=== PATIENT | female | born 1945 | race Caucasian/White ===

== ENCOUNTER 2016-08-28 13:40 | Emergency (ER) | payer MEDICARE, OTHER ==
[2016-08-28] MEDS ORDERED: Ondansetron 4 MG/2 ML SDV IVPUSH ONE (14:06)
[2016-08-28] MEDS ORDERED: HYDROmorphone 2 MG/ML Syringe IVPUSH ONE (14:06)
[2016-08-28] MEDS ORDERED: Sodium Chloride 0.9% 10 ML Syringe FLUSH PRN (14:06)
[2016-08-28] MEDS ORDERED: Sodium Chloride 0.9% 2.5 ML Syringe FLUSH PRN (14:06)
[2016-08-28] MEDS ORDERED: Dexamethasone 4 MG/ML SDV IVPUSH ONE (14:13)
--- NOTE | 2016-08-28 14:13 | EDM.PDOC ---
ED HPI GENERAL MEDICAL PROBLEM - General Chief Complaint: Back Pain or Injury Stated Complaint: UNK Time Seen by Provider: 08/28/16 13:45 Source of Information: Reports: Patient History Limitations: Reports: No limitations - History of Present Illness INITIAL COMMENTS - FREE TEXT/NARRATIVE: Presents to the ER after an MRI of the lumbar spine. The patient states that 2 weeks ago she had lumbar spine surgery at [facility] in [place] under the services of Dr. Patricio. She was discharged without any perioperative complications and did well the first 3 days. Then she began having "terrible" pain in her low back radiating to her buttocks hips and down her legs. She was seen in the [facility] clinic twice where they adjusted her pain medication. However within the last couple of days she has not been unable to walk and do to excruciating pain. This morning she was able to bear weight but only with severe pain. She denies bowel or bladder incontinence saddle anesthesia or fever. I did speak with the radiologist who indicated that the MRI showed a 1.3-1.9 cm fluid collection around L34 disc space posteriorly. This has mass effect on the thecal sac resulting in severe spinal canal stenosis. Tract up to the subcutaneous tissue. Most likely represents a hematoma. - Related Data Allergies Allergy/AdvReac Type Severity Reaction Status Date / Time hydrocodone Allergy Itching Verified 08/28/16 14:09 Home Meds: Home Meds . [Unable to Verify Home Med List] 08/28/16 [History] ED ROS GENERAL - Review of Systems Review Of Systems: ROS reveals no pertinent complaints other than HPI. ED EXAM,LOWER BACK PAIN/INJURY - Physical Exam Exam: See Below Exam Limited By: No limitations General Appearance: alert, no apparent distress (She states when she lays absolutely still she has no pain) Ears: normal external exam Nose: normal inspection Throat/Mouth: Normal inspection Head: atraumatic, normocephalic Neck: normal inspection Respiratory/Chest: no respiratory distress, lungs clear, normal breath sounds Cardiovascular: normal peripheral pulses, regular rate, rhythm, no murmur GI/Abdominal: Soft (Has been having regular bowel movements) Back Exam: normal inspection, other (Incision clean dry intact and granulating) Extremities: normal inspection Neurological: alert, CN II-XII intact, difficulty walking (Due to pain). No: saddle anesthesia Psychiatric: normal affect, normal mood Skin Exam: Warm, Dry, Intact, Normal color, No rash Lymphatic: no adenopathy Course - Vital Signs Last Recorded V/S: Last Vital Signs Temp 36.8 C 08/28/16 13:52 Pulse 72 08/28/16 13:52 Resp 16 08/28/16 13:52 BP 119/52 L 08/28/16 13:52 Pulse Ox 95 08/28/16 13:52 - Orders/Labs/Meds Orders: Active Orders 24 hr Category Date Time Status HYDROmorphone [Dilaudid] Med 08/28/16 14:06 Once 1 mg IVPUSH ONETIME ONE Ondansetron [Zofran] Med 08/28/16 14:06 Once 4 mg IVPUSH ONETIME ONE Sodium Chloride 0.9% [Saline Flush] Med 08/28/16 14:06 Ordered 10 ml FLUSH ASDIRECTED PRN Sodium Chloride 0.9% [Saline Flush] Med 08/28/16 14:06 Ordered 2.5 ml FLUSH ASDIRECTED PRN Saline Lock Insert [OM.PC] Stat Oth 08/28/16 14:06 Ordered - Re-Assessments/Exams Free Text/Narrative Re-Assessment/Exam: 08/28/16 15:[address] Chi, neurosurgery at [facility]. She talked with the patient's surgeon Dr. Patricio had viewed the MRI and scheduled the patient for surgery tomorrow morning. Dr. Chi and agrees to accept the patient in transfer and has notified the emergency room physician at [facility], Dr. Patel, who will be anticipating the patient's arrival. Free Text/Narrative Re-Assessment/Exam: 08/28/16 16:02 I did visit with Sena, the patient's daughter and informed her as well as the patient of the findings, transfer and plan of care Departure - Departure Time of Disposition: 15:57 Disposition: DC/Tfer to Acute Hospital 02 Condition: fair Clinical Impression: Spinal cord compression Postoperative complication Qualifiers: Surgical complication system/body Area: nervous system Surgical complication type: hematoma Procedure type: nervous system Qualified Code(s): G97.61 - Postprocedural hematoma of a nervous system organ or structure following a nervous system procedure - Discharge Information Forms: ED Department Discharge - My Orders Last 24 Hours: My Active Orders 08/28/16 14:06 HYDROmorphone [Dilaudid] 1 mg IVPUSH ONETIME ONE Ondansetron [Zofran] 4 mg IVPUSH ONETIME ONE Sodium Chloride 0.9% [Saline Flush] 10 ml FLUSH ASDIRECTED PRN Sodium Chloride 0.9% [Saline Flush] 2.5 ml FLUSH ASDIRECTED PRN Saline Lock Insert [OM.PC] Stat - Assessment/Plan Last 24 Hours: My Active Orders 08/28/16 14:06 HYDROmorphone [Dilaudid] 1 mg IVPUSH ONETIME ONE Ondansetron [Zofran] 4 mg IVPUSH ONETIME ONE Sodium Chloride 0.9% [Saline Flush] 10 ml FLUSH ASDIRECTED PRN Sodium Chloride 0.9% [Saline Flush] 2.5 ml FLUSH ASDIRECTED PRN Saline Lock Insert [OM.PC] Stat
[2016-08-28] MEDS ORDERED: HYDROmorphone 1 MG/ML Syringe IVPUSH ONE (14:34)
[2016-08-28] MEDS ORDERED: Dexamethasone 4 MG/ML SDV IVPUSH STA (14:38)
[2016-08-28] MEDS ORDERED: Dexamethasone 10 MG/ML SDV ONE (14:42)
[2016-08-28] MEDS ORDERED: LORazepam 2 MG/ML MDV IVPUSH ONE (16:24)
[2016-08-28 17:46] VITALS: BP 116/50
== END 2016-08-28 16:40 ==
LOC: MW.ED 13:40
DX: G95.20 Unspecified cord compression (principal); G97.61 Postprocedural hematoma of a nervous system organ or structure following a nervous system procedure; Z88.5 Allergy status to narcotic agent; M54.30 Sciatica, unspecified side; M51.35 Other intervertebral disc degeneration, thoracolumbar region
CPT/HCPCS: 72148; 81001; 96374; 96375; 99284; J1100; J1170; J2060; J2405

== ENCOUNTER → 2016-08-28 | Outpatient (CLI) | payer MEDICARE, OTHER ==
--- NOTE | 2016-08-28 13:43 | MR ---
EXAMINATION: MRI lumbar spine HISTORY: Sciatica, recent laminectomy COMPARISON: None TECHNIQUE: Multiplanar and multisequence images obtained of the lumbar spine. FINDINGS: There is straightening of the normal lumbar lordosis. The vertebral body heights appear gr ossly maintained. Endplate signal changes are noted at L4-L5. The distal spinal cord appears normal and the conus terminates at L1-L2. The visualized retroperitoneal structures appear normal. The S I joints are symmetric. T12-L1: Tiny diffuse disc bulge without significant spinal canal or neural foraminal stenosis. L1-L2: Tiny diffuse disc bulge with mild spinal canal stenosis accentuated by ligamentum flavum hype rtrophy. Minimal bilateral neural foraminal stenosis. L2-L3: Small diffuse disc bulge with facet and ligamentum flavum hypertrophy. There is moderate over all spinal canal stenosis. L3-L4: There is a moderate diffuse disc bulge with facet hypertrophy. There is severe spinal canal s tenosis predominantly from a complex posterior fluid collection measuring 1.9 x 1.3 cm extending int o the epidural space superiorly. This is in the site of the recent laminectomy. Appears to be a sinu s tract extending posteriorly to the cutaneous surface. L4-L5: Tiny diffuse osteophyte disc complex without spinal canal stenosis. Mild facet hypertrophy. M oderate bilateral neural foraminal stenosis. Overlying laminectomy changes. L5-S1: Moderate diffuse disc bulge without significant spinal canal stenosis. Moderate left and mild right neural foraminal stenosis. IMPRESSION: 1. There is a complex 1.3 x 1.9 cm fluid collection overlying the L3-L4 disc space posteriorly. This has mass effect on the thecal sac resulting in severe spinal canal stenosis at the level. This appe ars continuous with a sinus tract extending posteriorly to the subcutaneous tissues. This likely rep resents a postoperative hematoma, however an abscess is not excluded. 2. Otherwise multilevel degenerative disc disease noted within the lumbar spine with individual deta ils above.
== END ==
LOC: MW.MRI 12:38
PROVIDERS: ATTEND Nurse Practitioner Family
DX: M54.30 Sciatica, unspecified side (principal); M51.35 Other intervertebral disc degeneration, thoracolumbar region
CPT/HCPCS: 72148; 72148-26

== ENCOUNTER 2017-04-09 11:30 | Inpatient (IN) | payer MEDICARE, OTHER ==
[~2017-04-09 11:30] MED LIST: Acetaminophen 1,000 MG in Premix Bag 1 BAG IV SCH; Famotidine 20 MG/2 ML SDV IVPUSH SCH; HYDROmorphone 2 MG/ML Syringe ONE; Ketorolac 15 MG/ML SDV IVPUSH SCH; Lactated Ringers 1,000 ML IV SCH; Lidocaine 2% 5 ML SDV ONE; Midazolam 1 MG/ML 2 ML SDV ONE; Ondansetron 4 MG/2 ML SDV IVPUSH PRN; Ondansetron 4 MG/2 ML SDV ONE; Propofol 200 MG/20 ML SDV ONE; Ropivacaine 49.25 ML, Ketorolac 30 MG, EPINEPHrine 0.5 MG, cloNIDine 80 MCG in Sodium C... INJECT SCH; Scopolamine 1.5 MG Transdermal Patch TRDERM SCH; Succinylcholine/Normal Saline 200 MG/10 ML Syringe ONE; Tranexamic Acid 4,000 MG in Sodium Chloride 0.9% 100 ML IV SCH; ceFAZolin 2 GM in Premix Bag 1 BAG IV SCH; ePHEDrine 50 MG/ML SDV ONE; fentaNYL 100 MCG/2 ML SDV ONE; oxyCODONE ER 10 MG TAB.ER PO SCH
[2017-04-09] MEDS ORDERED: fentaNYL 100 MCG/2 ML SDV ONE ×2 (12:03→12:12)
[2017-04-09] MEDS ORDERED: diphenhydrAMINE 50 MG/ML SDV ONE (12:14)
[2017-04-09] MEDS ORDERED: Acetaminophen 1,000 MG in Premix Bag 1 BAG IV PRN (13:15)
[2017-04-09] MEDS ORDERED: HYDROmorphone 1 MG/ML Syringe ONE ×2 (13:17→17:36)
[2017-04-09] MEDS ORDERED: diphenhydrAMINE 50 MG Cap ONE (14:06)
[2017-04-09] MEDS ORDERED: Ketorolac 30 MG/ML SDV ONE (14:06)
[2017-04-09] MEDS ORDERED: oxyCODONE 5 MG Tab ONE (15:21)
--- NOTE | 2017-04-09 18:19 | OR ---
SURGEON: Latasha Walker MD DATE OF PROCEDURE: 04/09/2017 PREOPERATIVE DIAGNOSIS: Degenerative joint disease, left knee. POSTOPERATIVE DIAGNOSIS: Degenerative joint disease, left knee. PROCEDURE: Left total knee arthroplasty using patient-specific instrumentation. ASSISTANTS: 1. Florida Gutierres PA-C. 2. Felix Isaac PA-C. ANESTHESIA: General. ESTIMATED BLOOD LOSS: 50 mL. TOURNIQUET TIME: 35 minutes. COMPLICATIONS: None. DVT PROPHYLAXIS: PAS boot and NAOMY hose to the nonoperative leg. IMPLANTS USED: Mamie NexGen femoral component size E, gender specific (LPS), tibial component size 5, 10 mm all-polyethylene articular surface, and 32 mm all-polyethylene patella. FINDINGS: Intraoperative findings showed evidence of tricompartmental degenerative joint disease with grade 4 chondromalacia. Osteophyte formation was also noted. No significant synovitis was found. BRIEF HISTORY: Luzmaria is a 71-year-old female, who has had complaint of progressive left knee pain. She had failed conservative treatment. Due to her lack of response to conservative treatment, I did recommend surgical intervention. The risks and goals of procedure were discussed with the patient and were documented preoperatively. She agreed to proceed. DESCRIPTION OF PROCEDURE: The patient was properly identified and brought to the operating room. The patient was transferred from the operating room cart and placed on the operating room table. Spinal anesthesia was administered by the anesthesia team. After adequate sedation was achieved, a well-padded tourniquet was applied to the lower extremity. A Hooker catheter was then placed. The lower extremity was then prepped in standard fashion using ChloraPrep solution. It was then sterilely draped. A time-out was performed to ensure correct site and procedure. Preoperative antibiotics were given along with one gram of tranexamic acid IV. The surgical site had been marked preoperatively. An Esmarch was used to exsanguinate the lower extremity and the tourniquet was inflated. An incision was made centered over the anterior aspect of the knee. The subcutaneous tissues were dissected down to the level of the fascia. A medial parapatellar approach was made. A partial medial release was also performed. The knee was then brought into extension and a portion of the infrapatellar fat pad was excised. The knee was then brought into flexion. The femoral patient specific cutting block was placed. This fit anatomically. The pins were then placed. The 0 degree distal femoral cutting guide was placed over the distal femur pins. The femur was then resected using an oscillating saw. The pins were then removed and were placed into the previously placed distal drill holes in the femoral condyles. Both Mccone's and the epicondylar axis were marked with electric cautery. The cutting block was then placed. This was pinned into position in a slightly lateral and externally rotated position. This was then secured. The resection guide was used to check to make sure that the anterior femoral cortex would not be notched. The anterior condylar cut was then made. No notching of the femur was noted. This was followed by the posterior condylar, posterior chamfer, and anterior chamfer cuts. The narrow reciprocating saw was then used to cut the base of the trochlear recess and score the edges. The finishing guide was then removed and the trochlear recess cuts and remaining bone cuts were finished. The notch cutting block was then placed into position and the notch cut was made without difficulty using the reciprocating saw. This was then removed. The notch block that had been cut along with a portion of the cruciate ligaments were also resected. We then turned our attention to the tibia. The posterior cruciate ligament retractor was used to bring the tibial surface anteriorly. The patient specific tibial block was then placed. This fit anatomically. It was pinned into position. The block was then removed. The 0 degree proximal tibia cutting guide was then placed over the guide pin. This was secured with a Abdias clamp. The resection depth was checked using the resection guide. A proximal tibia cut was then made using an oscillating saw. Care was taken to protect the patellar tendon. The proximal tibia bone was then removed. The remainder of the medial and lateral meniscus were also excised. Care was taken to protect the popliteus tendon. The proximal tibia was then sized. The remainder of the osteophytes along the proximal tibia were also resected. The distal femur was elevated to expose the posterior knee. The posterior capsule was stripped off the distal femur using a curved osteotome. The posterior osteophytes were also excised. The posterior capsule, along with the medial and lateral gutters, were then injected with the standard, preoperatively prepared, mixture consisting of clonidine, epinephrine, ropivacaine, Toradol, and saline, unless any allergies were noted preoperatively. The femoral trial was then placed. This was followed by the tibial component with a size 10 trial polyethylene. The knee was brought into full extension. Stability to varus and valgus stress was checked in extension and in flexion. There appeared to be good range of motion and stability. The knee was then brought into full extension. The patella was everted. The patella was resected to a thickness of 15 millimeters. It was then sized. Once the appropriate size was determined, the patella was prepared by placing the patella button in a slightly superior and medial position. The patella button trial was then placed and the knee was again taken through a range of motion. There was excellent patellar tracking using the no-touch technique. Alignment was checked with a drop maxine. The trial components were then removed. The knee was brought into full flexion and the tibia was prepared in a standard fashion placing the tibial plate in slight external rotation with the center of the prosthesis lined up with the medial aspect of the tibial tubercle. The wound was then copiously irrigated with Pulsavac solution to remove any bony debris. The bone ends were then suctioned dry. Cement was prepared in the usual fashion on the back table. The cement was then placed onto the proximal tibia and the tibial component was placed without difficulty. This was malleted into position. Excess cement was cleared. The femoral component was cemented in a similar manner. A trial polyethylene was then placed and the knee was brought into full extension. An axial load was applied. The patella button was then cemented into place and a patella clamp was placed to hold pressure. The cement was allowed to cure. The wound was again copiously irrigated with saline solution using a Pulsavac dye weigher. Following this 1 g of tranexamic acid was applied to the wound topically. After the cement had adequately hardened, the patella clamp was released. The knee was again taken through a range of motion. It was determined at this time the correct thickness of polyethylene. The trial polyethylene insert was then removed. The knee was brought into flexion and the tibial tray was suctioned dry. Any excess cement was cleared from the tibial and femoral components. The knee was then brought into approximately 45 degrees of flexion. The tourniquet was deflated. No excess bleeding was noted from the posterior aspect of the knee. An additional gram of tranexamic acid was given IV. The previously determined sized polyethylene insert was then placed and locked into position without difficulty. The knee was again taken through a range of motion with no change in stability, either in flexion or extension. The fascia layer was closed with No. 1 Vicryl. The subcutaneous tissue was closed with 2-0 Vicryl and the skin was closed with a germaine. Xeroform gauze was placed over the wound and a bulky dressing was applied. The patient was then awakened from the anesthetic and transferred back to the operating cart. The patient was brought to recovery room in stable condition. All needle and sponge counts were correct. EFREN / FRANCESCA /[id number]
[2017-04-09] MEDS: oxyCODONE ER 10 MG TAB.ER PO SCH ×2 (18:45→21:03)
[2017-04-09] MEDS: Ketorolac 30 MG/ML SDV IVPUSH SCH ×2 (18:46→21:04)
[2017-04-09] MEDS: Acetaminophen 500 MG Tab PO SCH ×2 (18:48→21:02)
[2017-04-09] MEDS: ceFAZolin 2 GM in Premix Bag 1 BAG IV SCH (19:21)
[2017-04-09] MEDS: diphenhydrAMINE 25 MG Cap PO PRN (19:23)
[2017-04-09] MEDS: Docusate Sodium 100 MG Cap PO SCH (21:04)
[2017-04-09] MEDS: HYDROmorphone 1 MG/ML Syringe IVPUSH PRN (23:14)
[2017-04-10] MEDS: diphenhydrAMINE 25 MG Cap PO PRN ×2 (01:04→03:32)
[2017-04-10] MEDS: oxyCODONE 5 MG Tab PO PRN ×5 (01:08→21:42)
[2017-04-10] MEDS: Ketorolac 30 MG/ML SDV IVPUSH SCH (02:37)
[2017-04-10] MEDS: ceFAZolin 2 GM in Premix Bag 1 BAG IV SCH (02:39)
[2017-04-10] MEDS: Acetaminophen 500 MG Tab PO SCH ×4 (02:47→21:42)
[2017-04-10] MEDS: hydrOXYzine HCl 25 MG Tab PO PRN ×2 (04:30→15:56)
--- NOTE | 2017-04-10 08:34 | PCM48HPAN ---
Post Anesthesia Note - EVALUATION WITHIN 48HRS OF ANESTHETIC Vital Signs in Normal Range: Yes Patient Participated in Evaluation: Yes Respiratory Function Stable: Yes Airway Patent: Yes Cardiovascular Function Stable: Yes Hydration Status Stable: Yes Pain Control Satisfactory: Yes Nausea and Vomiting Control Satisfactory: No (see note) Mental Status Recovered: Yes - COMMENTS/OBSERVATIONS Free Text/Narrative:: Patient states she always has nausea from the stress of the care of her so the nausea is nothing new and she "has had it for days" Nurses times two in the room working with patient and aware.
[2017-04-10] MEDS ORDERED: Sodium Chloride 0.9% 10 ML Syringe FLUSH PRN (08:47)
[2017-04-10] MEDS ORDERED: Sodium Chloride 0.9% 2.5 ML Syringe FLUSH PRN (08:47)
--- NOTE | 2017-04-10 08:52 | PCM.SURGPN ---
<[place] Gutierres R - Last Filed: 04/10/17 08:48> - General Info Date of Service: 04/10/17 Date of Surgery/Procedure: 04/09/17 POD#: 1 Functional Status: Reports: Pain Controlled - Review of Systems General: Reports: No Symptoms Pulmonary: Reports: No Symptoms Cardiovascular: Reports: No Symptoms Gastrointestinal: Reports: No Symptoms Skin: Reports: Pruritis Systems Review Comment:: pt up to chair for breakfast tolerating PO intake well itching overnight, improved with hydroxyzine pain controlled with pain pills - Patient Data Vitals - Most Recent: Last Vital Signs Temp 98.2 F 04/10/17 04:00 Pulse 70 04/10/17 04:00 Resp 16 04/10/17 04:00 BP 131/71 04/10/17 04:00 Pulse Ox 96 04/10/17 04:00 Weight - Most Recent: 86.183 kg I&O - Last 24 Hours: Intake & Output 04/09/17 04/10/17 04/10/17 22:59 06:59 14:59 Intake Total 500 2191 Output Total 325 1720 Balance 175 471 Lab Results Last 24 Hrs: Laboratory Results - last 24 hr 04/09/17 04/10/17 Range/Units 08:49 05:13 Hgb 11.5 L (12.0-16.0) g/dL Hct 34.0 L (36.0-46.0) % Blood Type B POSITIVE Antibody Screen NEGATIVE Med Orders - Current: Current Medications Acetaminophen (Tylenol Extra Strength) 1,000 mg PO Q6H [facility] Last Admin: 04/10/17 02:47 Dose: 1,000 mg Aspirin (Aspirin) 325 mg PO BID [facility] Celecoxib (Celebrex) 200 mg PO BID [facility] Diphenhydramine HCl (Benadryl) 0 mg PO Q6H PRN PRN Reason: Itching Last Admin: 04/10/17 03:32 Dose: 25 mg Docusate Sodium (Colace) 100 mg PO BID [facility] Last Admin: 04/09/17 21:04 Dose: 100 mg Hydromorphone HCl (Dilaudid) 0 mg IVPUSH Q3H PRN PRN Reason: Pain Last Admin: 04/09/17 23:14 Dose: 1 mg Hydroxyzine HCl (Atarax) 25 mg PO Q8H PRN PRN Reason: Itching Last Admin: 04/10/17 04:30 Dose: 25 mg Lactated Ringer's (Ringers, Lactated) 1,000 mls @ 100 mls/hr IV ASDIRECTED [facility] Last Admin: 04/10/17 02:41 Dose: 100 mls/hr Ondansetron HCl (Zofran) 4 mg IVPUSH Q6H PRN PRN Reason: Nausea/Vomiting Oxycodone HCl (Oxycodone) 0 mg PO Q4H PRN PRN Reason: Pain Last Admin: 04/10/17 01:08 Dose: 5 mg Oxycodone HCl (Oxycontin) 10 mg PO Q12HR [facility] Last Admin: 04/09/17 21:03 Dose: 10 mg Scopolamine (Transderm-Scop) 1.5 mg TRDERM ONARRIVE [facility] Discontinued Medications Diphenhydramine HCl (Benadryl) Confirm Administered Dose 50 mg .ROUTE .STK-MED ONE Stop: 04/09/17 12:15 Last Admin: 04/09/17 18:46 Dose: Not Given Diphenhydramine HCl (Benadryl) Confirm Administered Dose 50 mg .ROUTE .STK-MED ONE Stop: 04/09/17 14:07 Last Admin: 04/09/17 18:46 Dose: Not Given Ephedrine Sulfate (Ephedrine Sulfate) Confirm Administered Dose 50 mg .ROUTE .STK-MED ONE Stop: 04/09/17 09:23 Famotidine (Pepcid) 40 mg IVPUSH ONARRIVE [facility] Famotidine (Pepcid) 40 mg IVPUSH ONARRIVE [facility] Stop: 04/09/17 14:01 Fentanyl (Sublimaze) Confirm Administered Dose 100 mcg .ROUTE .STK-MED ONE Stop: 04/09/17 09:23 Fentanyl (Sublimaze) Confirm Administered Dose 100 mcg .ROUTE .STK-MED ONE Stop: 04/09/17 09:24 Fentanyl (Sublimaze) Confirm Administered Dose 100 mcg .ROUTE .STK-MED ONE Stop: 04/09/17 10:37 Fentanyl (Sublimaze) Confirm Administered Dose 100 mcg .ROUTE .STK-MED ONE Stop: 04/09/17 11:05 Fentanyl (Sublimaze) Confirm Administered Dose 100 mcg .ROUTE .STK-MED ONE Stop: 04/09/17 12:04 Last Admin: 04/09/17 18:45 Dose: Not Given Fentanyl (Sublimaze) Confirm Administered Dose 100 mcg .ROUTE .STK-MED ONE Stop: 04/09/17 12:13 Last Admin: 04/09/17 18:46 Dose: Not Given Hydromorphone HCl (Dilaudid) Confirm Administered Dose 2 mg .ROUTE .STK-MED ONE Stop: 04/09/17 10:18 Hydromorphone HCl (Dilaudid) Confirm Administered Dose 1 mg .ROUTE .STK-MED ONE Stop: 04/09/17 13:18 Last Admin: 04/09/17 18:46 Dose: Not Given Hydromorphone HCl (Dilaudid) Confirm Administered Dose 1 mg .ROUTE .STK-MED ONE Stop: 04/09/17 17:37 Last Admin: 04/09/17 18:48 Dose: Not Given Acetaminophen 1,000 mg/ Premix 100 mls @ 400 mls/hr IV ONARRIVE [facility] Cefazolin Sodium/Dextrose 2 gm (/ Premix) 50 mls @ 100 mls/hr IV ONCALL [facility] Lactated Ringer's (Ringers, Lactated) 1,000 mls @ 100 mls/hr IV ASDIRECTED [facility] Stop: 04/09/17 14:01 Tranexamic Acid 4,000 mg/ (Sodium Chloride) 140 mls @ 600 mls/hr IV ASDIRECTED [facility] Stop: 04/09/17 14:01 Ropivacaine 49.25 ml/Ketorolac Tromethamine 30 mg/Epinephrine HCl 0.5 mg/ Clonidine HCl 80 mcg/ Sodium Chloride 100 mls @ 2,975.207 mls/hr INJECT ASDIRECTED [facility] Stop: 04/09/17 14:01 Acetaminophen 1,000 mg/ Premix 100 mls @ 400 mls/hr IV ONARRIVE [facility] Stop: 04/09/17 14:01 Cefazolin Sodium/Dextrose 2 gm (/ Premix) 50 mls @ 100 mls/hr IV ONCALL [facility] Stop: 04/09/17 14:01 Tranexamic Acid 4,000 mg/ (Sodium Chloride) 140 mls @ 600 mls/hr IV ASDIRECTED [facility] Stop: 04/09/17 14:01 Acetaminophen 1,000 mg/ Premix 100 mls @ 400 mls/hr IV Q6H PRN PRN Reason: Pain Cefazolin Sodium/Dextrose 2 gm (/ Premix) 50 mls @ 100 mls/hr IV Q8H [facility] Stop: 04/10/17 02:29 Last Admin: 04/10/17 02:39 Dose: 100 mls/hr Acetaminophen (Ofirmev) Confirm Administered Dose 100 mls @ as directed IV .STK- MED ONE Stop: 04/09/17 13:30 Last Admin: 04/09/17 18:46 Dose: Not Given Ketorolac Tromethamine (Toradol) 15 mg IVPUSH ONARRIVE [facility] Stop: 04/09/17 14:01 Ketorolac Tromethamine (Toradol) 30 mg IVPUSH Q6H [facility] Stop: 04/10/17 04:00 Last Admin: 04/10/17 02:37 Dose: 30 mg Ketorolac Tromethamine (Toradol) Confirm Administered Dose 30 mg .ROUTE .STK- MED ONE Stop: 04/09/17 14:07 Last Admin: 04/09/17 18:46 Dose: Not Given Lidocaine (Xylocaine-Mpf 2%) Confirm Administered Dose 10 ml .ROUTE .STK-MED ONE Stop: 04/09/17 09:23 Midazolam HCl (Versed 1 Mg/Ml) Confirm Administered Dose 2 mg .ROUTE .STK-MED ONE Stop: 04/09/17 09:24 Ondansetron HCl (Zofran) Confirm Administered Dose 4 mg .ROUTE .STK-MED ONE Stop: 04/09/17 10:44 Oxycodone HCl (Oxycontin) 10 mg PO ONARRIVE [facility] Stop: 04/09/17 14:01 Oxycodone HCl (Oxycodone) Confirm Administered Dose 10 mg .ROUTE .STK-MED ONE Stop: 04/09/17 15:22 Last Admin: 04/09/17 18:47 Dose: Not Given Propofol (Diprivan 20 Ml) Confirm Administered Dose 400 mg .ROUTE .STK-MED ONE Stop: 04/09/17 09:24 Scopolamine (Transderm-Scop) 1.5 mg TRDERM ONARRIVE [facility] Succinylcholine Chloride (Succinylcholine In Ns Pf) Confirm Administered Dose 200 mg .ROUTE .STK-MED ONE Stop: 04/09/17 10:17 Tranexamic Acid (Cyklokapron) Confirm Administered Dose 4,000 mg .ROUTE .STK- MED ONE Stop: 04/09/17 09:33 - Exam Wound/Incisions: Dressing Dry and Intact General: Alert, Oriented Cardiovascular: Regular Rate, Regular Rhythm Extremities: Other (exam LLE - at/ehl/gastroc 5/5, dp 2+, sensation intact distally) Physical Findings Comment:: vss, afeb UO 2000+mL hgb 11.5 - Problem List Review Problem List Initiated/Reviewed/Updated: Yes - My Orders Last 24 Hours: Active Orders 24 hr Category Date Time Status Activity as Tolerated [RC] .Routine Care 04/09/17 11:11 Active Antiembolic Devices [RC] PER UNIT ROUTINE Care 04/09/17 08:00 Active Antiembolic Devices [RC] PER UNIT ROUTINE Care 04/09/17 16:30 Active Insert Urinary Catheter [OM.PC] Routine Care 04/09/17 08:00 Ordered Intake and Output [RC] ASDIRECTED Care 04/09/17 11:11 Active Neurovascular Check [RC] Q2HR Care 04/09/17 11:11 Active Urinary Catheter Assessment [RC] ASDIRECTED Care 04/09/17 08:00 Active Urinary Catheter Removal [RC] Per Unit Routine Care 04/10/17 08:47 Ordered Vital Signs [RC] Q4H Care 04/09/17 16:29 Active Wound Care [RC] DAILY Care 04/09/17 11:11 Active Consult to Physical Therapy [PT Evaluation and Cons 04/09/17 16:27 Active Treatment] [CONS] Routine Regular Diet [DIET] Diet 04/09/17 Dinner Active HEMOGLOBIN/HEMATOCRIT,HH [HEME] AM Lab 04/11/17 05:11 Ordered HEMOGLOBIN/HEMATOCRIT,HH [HEME] AM Lab 04/12/17 05:11 Ordered Acetaminophen [Tylenol Extra Strength] Med 04/09/17 15:45 Active 1,000 mg PO Q6H Aspirin Med 04/10/17 09:00 Active 325 mg PO BID Celecoxib [CeleBREX] Med 04/10/17 09:00 Active 200 mg PO BID Docusate Sodium [Colace] Med 04/09/17 21:00 Active 100 mg PO BID HYDROmorphone [Dilaudid] Med 04/09/17 11:11 Active See Dose Instructions IVPUSH Q3H PRN Lactated Ringers [Ringers, Lactated] 1,000 ml Med 04/09/17 11:11 Active IV ASDIRECTED Ondansetron [Zofran] Med 04/09/17 11:11 Active 4 mg IVPUSH Q6H PRN Sodium Chloride 0.9% [Saline Flush] Med 04/10/17 08:47 Ordered 10 ml FLUSH ASDIRECTED PRN Sodium Chloride 0.9% [Saline Flush] Med 04/10/17 08:47 Ordered 2.5 ml FLUSH ASDIRECTED PRN diphenhydrAMINE [Benadryl] Med 04/09/17 11:11 Active See Dose Instructions PO Q6H PRN hydrOXYzine HCl [Atarax] Med 04/10/17 04:17 Active 25 mg PO Q8H PRN oxyCODONE Med 04/09/17 11:11 Active See Dose Instructions PO Q4H PRN oxyCODONE ER [OxyCONTIN] Med 04/09/17 11:11 Active 10 mg PO Q12HR Convert IV to Saline Lock [OM.PC] Routine Oth 04/10/17 08:47 Ordered Ice Therapy [OM.PC] Routine Oth 04/09/17 11:11 Ordered SCD [Sequential Compression Device] [OM.PC] Routine Oth 04/09/17 11:11 Ordered Medication Orders Acetaminophen (Tylenol Extra Strength) 1,000 mg PO Q6H [facility] Last Admin: 04/10/17 02:47 Dose: 1,000 mg Admin: 04/09/17 21:02 Dose: 1,000 mg Admin: 04/09/17 18:48 Dose: Aspirin (Aspirin) 325 mg PO BID [facility] Celecoxib (Celebrex) 200 mg PO BID [facility] Diphenhydramine HCl (Benadryl) 0 mg PO Q6H PRN PRN Reason: Itching Last Admin: 04/10/17 03:32 Dose: 25 mg Admin: 04/10/17 01:04 Dose: 25 mg Admin: 04/09/17 19:23 Dose: 50 mg Docusate Sodium (Colace) 100 mg PO BID [facility] Last Admin: 04/09/17 21:04 Dose: 100 mg Hydromorphone HCl (Dilaudid) 0 mg IVPUSH Q3H PRN PRN Reason: Pain Last Admin: 04/09/17 23:14 Dose: 1 mg Hydroxyzine HCl (Atarax) 25 mg PO Q8H PRN PRN Reason: Itching Last Admin: 04/10/17 04:30 Dose: 25 mg Lactated Ringer's (Ringers, Lactated) 1,000 mls @ 100 mls/hr IV ASDIRECTED [facility] Last Admin: 04/10/17 02:41 Dose: 100 mls/hr Ondansetron HCl (Zofran) 4 mg IVPUSH Q6H PRN PRN Reason: Nausea/Vomiting Oxycodone HCl (Oxycodone) 0 mg PO Q4H PRN PRN Reason: Pain Last Admin: 04/10/17 01:08 Dose: 5 mg Oxycodone HCl (Oxycontin) 10 mg PO Q12HR [facility] Last Admin: 04/09/17 21:03 Dose: 10 mg Admin: 04/09/17 18:45 Dose: Scopolamine (Transderm-Scop) 1.5 mg TRDERM ONARRIVE [facility] - Assessment Assessment (Free Text/Narrative):: POD#1 L TKA acute posthemorrhagic anemia - Plan Plan (Free Text/Narrative):: DC IV fluids DC adams continue pain management, hydroxyzine PT today ASA 325mg PO BID as DVT prophylaxis dispo: swingbed on Saturday <Latasha Walker - Last Filed: 04/10/17 12:24> - Patient Data Vitals - Most Recent: Last Vital Signs Temp 98.2 F 04/10/17 04:00 Pulse 70 04/10/17 04:00 Resp 16 04/10/17 04:00 BP 131/71 04/10/17 04:00 Pulse Ox 96 04/10/17 04:00 I&O - Last 24 Hours: Intake & Output 04/09/17 04/10/17 04/10/17 22:59 06:59 14:59 Intake Total 500 2191 614 Output Total 325 1720 Balance 175 471 614 Lab Results Last 24 Hrs: Laboratory Results - last 24 hr 04/09/17 04/10/17 Range/Units 08:49 05:13 Hgb 11.5 L (12.0-16.0) g/dL Hct 34.0 L (36.0-46.0) % Blood Type B POSITIVE Antibody Screen NEGATIVE Med Orders - Current: Current Medications Acetaminophen (Tylenol Extra Strength) 1,000 mg PO Q6H [facility] Last Admin: 04/10/17 09:24 Dose: 1,000 mg Aspirin (Aspirin) 325 mg PO BID [facility] Last Admin: 04/10/17 09:23 Dose: 325 mg Celecoxib (Celebrex) 200 mg PO BID [facility] Last Admin: 04/10/17 09:24 Dose: 200 mg Citalopram Hydrobromide (Celexa) 40 mg PO DAILY [facility] Last Admin: 04/10/17 09:24 Dose: 40 mg Diphenhydramine HCl (Benadryl) 0 mg PO Q6H PRN PRN Reason: Itching Last Admin: 04/10/17 03:32 Dose: 25 mg Docusate Sodium (Colace) 100 mg PO BID [facility] Last Admin: 04/10/17 09:24 Dose: 100 mg Hydromorphone HCl (Dilaudid) 0 mg IVPUSH Q3H PRN PRN Reason: Pain Last Admin: 04/09/17 23:14 Dose: 1 mg Hydroxyzine HCl (Atarax) 25 mg PO Q8H PRN PRN Reason: Itching Last Admin: 04/10/17 04:30 Dose: 25 mg Lactated Ringer's (Ringers, Lactated) 1,000 mls @ 100 mls/hr IV ASDIRECTED [facility] Last Admin: 04/10/17 02:41 Dose: 100 mls/hr Ondansetron HCl (Zofran) 4 mg IVPUSH Q6H PRN PRN Reason: Nausea/Vomiting Oxycodone HCl (Oxycodone) 0 mg PO Q4H PRN PRN Reason: Pain Last Admin: 04/10/17 09:40 Dose: 10 mg Oxycodone HCl (Oxycontin) 10 mg PO Q12HR [facility] Last Admin: 04/10/17 09:24 Dose: 10 mg Pantoprazole Sodium (Protonix) 40 mg PO DAILY [facility] Last Admin: 04/10/17 09:25 Dose: 40 mg Patient Own Medication (Ptom) 1 each PO DAILY [facility] Last Admin: 04/10/17 09:14 Dose: Not Given Scopolamine (Transderm-Scop) 1.5 mg TRDERM ONARRIVE [facility] Sodium Chloride (Saline Flush) 10 ml FLUSH ASDIRECTED PRN PRN Reason: Keep Vein Open Sodium Chloride (Saline Flush) 2.5 ml FLUSH ASDIRECTED PRN PRN Reason: Keep Vein Open Topiramate (Topamax) 100 mg PO DAILY [facility] Last Admin: 04/10/17 09:24 Dose: 100 mg Discontinued Medications Diphenhydramine HCl (Benadryl) Confirm Administered Dose 50 mg .ROUTE .STK-MED ONE Stop: 04/09/17 12:15 Last Admin: 04/09/17 18:46 Dose: Not Given Diphenhydramine HCl (Benadryl) Confirm Administered Dose 50 mg .ROUTE .STK-MED ONE Stop: 04/09/17 14:07 Last Admin: 04/09/17 18:46 Dose: Not Given Ephedrine Sulfate (Ephedrine Sulfate) Confirm Administered Dose 50 mg .ROUTE .STK-MED ONE Stop: 04/09/17 09:23 Famotidine (Pepcid) 40 mg IVPUSH ONARRIVE [facility] Famotidine (Pepcid) 40 mg IVPUSH ONARRIVE [facility] Stop: 04/09/17 14:01 Fentanyl (Sublimaze) Confirm Administered Dose 100 mcg .ROUTE .STK-MED ONE Stop: 04/09/17 09:23 Fentanyl (Sublimaze) Confirm Administered Dose 100 mcg .ROUTE .STK-MED ONE Stop: 04/09/17 09:24 Fentanyl (Sublimaze) Confirm Administered Dose 100 mcg .ROUTE .STK-MED ONE Stop: 04/09/17 10:37 Fentanyl (Sublimaze) Confirm Administered Dose 100 mcg .ROUTE .STK-MED ONE Stop: 04/09/17 11:05 Fentanyl (Sublimaze) Confirm Administered Dose 100 mcg .ROUTE .STK-MED ONE Stop: 04/09/17 12:04 Last Admin: 04/09/17 18:45 Dose: Not Given Fentanyl (Sublimaze) Confirm Administered Dose 100 mcg .ROUTE .STK-MED ONE Stop: 04/09/17 12:13 Last Admin: 04/09/17 18:46 Dose: Not Given Hydromorphone HCl (Dilaudid) Confirm Administered Dose 2 mg .ROUTE .STK-MED ONE Stop: 04/09/17 10:18 Hydromorphone HCl (Dilaudid) Confirm Administered Dose 1 mg .ROUTE .STK-MED ONE Stop: 04/09/17 13:18 Last Admin: 04/09/17 18:46 Dose: Not Given Hydromorphone HCl (Dilaudid) Confirm Administered Dose 1 mg .ROUTE .STK-MED ONE Stop: 04/09/17 17:37 Last Admin: 04/09/17 18:48 Dose: Not Given Acetaminophen 1,000 mg/ Premix 100 mls @ 400 mls/hr IV ONARRIVE [facility] Cefazolin Sodium/Dextrose 2 gm (/ Premix) 50 mls @ 100 mls/hr IV ONCALL [facility] Lactated Ringer's (Ringers, Lactated) 1,000 mls @ 100 mls/hr IV ASDIRECTED [facility] Stop: 04/09/17 14:01 Tranexamic Acid 4,000 mg/ (Sodium Chloride) 140 mls @ 600 mls/hr IV ASDIRECTED [facility] Stop: 04/09/17 14:01 Ropivacaine 49.25 ml/Ketorolac Tromethamine 30 mg/Epinephrine HCl 0.5 mg/ Clonidine HCl 80 mcg/ Sodium Chloride 100 mls @ 2,975.207 mls/hr INJECT ASDIRECTED [facility] Stop: 04/09/17 14:01 Acetaminophen 1,000 mg/ Premix 100 mls @ 400 mls/hr IV ONARRIVE [facility] Stop: 04/09/17 14:01 Cefazolin Sodium/Dextrose 2 gm (/ Premix) 50 mls @ 100 mls/hr IV ONCALL [facility] Stop: 04/09/17 14:01 Tranexamic Acid 4,000 mg/ (Sodium Chloride) 140 mls @ 600 mls/hr IV ASDIRECTED [facility] Stop: 04/09/17 14:01 Acetaminophen 1,000 mg/ Premix 100 mls @ 400 mls/hr IV Q6H PRN PRN Reason: Pain Cefazolin Sodium/Dextrose 2 gm (/ Premix) 50 mls @ 100 mls/hr IV Q8H [facility] Stop: 04/10/17 02:29 Last Admin: 04/10/17 02:39 Dose: 100 mls/hr Acetaminophen (Ofirmev) Confirm Administered Dose 100 mls @ as directed IV .STK- MED ONE Stop: 04/09/17 13:30 Last Admin: 04/09/17 18:46 Dose: Not Given Ketorolac Tromethamine (Toradol) 15 mg IVPUSH ONARRIVE [facility] Stop: 04/09/17 14:01 Ketorolac Tromethamine (Toradol) 30 mg IVPUSH Q6H [facility] Stop: 04/10/17 04:00 Last Admin: 04/10/17 02:37 Dose: 30 mg Ketorolac Tromethamine (Toradol) Confirm Administered Dose 30 mg .ROUTE .STK- MED ONE Stop: 04/09/17 14:07 Last Admin: 04/09/17 18:46 Dose: Not Given Lidocaine (Xylocaine-Mpf 2%) Confirm Administered Dose 10 ml .ROUTE .STK-MED ONE Stop: 04/09/17 09:23 Midazolam HCl (Versed 1 Mg/Ml) Confirm Administered Dose 2 mg .ROUTE .STK-MED ONE Stop: 04/09/17 09:24 Ondansetron HCl (Zofran) Confirm Administered Dose 4 mg .ROUTE .STK-MED ONE Stop: 04/09/17 10:44 Oxycodone HCl (Oxycontin) 10 mg PO ONARRIVE [facility] Stop: 04/09/17 14:01 Oxycodone HCl (Oxycodone) Confirm Administered Dose 10 mg .ROUTE .STK-MED ONE Stop: 04/09/17 15:22 Last Admin: 04/09/17 18:47 Dose: Not Given Propofol (Diprivan 20 Ml) Confirm Administered Dose 400 mg .ROUTE .STK-MED ONE Stop: 04/09/17 09:24 Scopolamine (Transderm-Scop) 1.5 mg TRDERM ONARRIVE [facility] Succinylcholine Chloride (Succinylcholine In Ns Pf) Confirm Administered Dose 200 mg .ROUTE .STK-MED ONE Stop: 04/09/17 10:17 Tranexamic Acid (Cyklokapron) Confirm Administered Dose 4,000 mg .ROUTE .STK- MED ONE Stop: 04/09/17 09:33 - My Orders Last 24 Hours: Active Orders 24 hr Category Date Time Status Antiembolic Devices [RC] PER UNIT ROUTINE Care 04/09/17 16:30 Active Urinary Catheter Removal [RC] Per Unit Routine Care 04/10/17 08:47 Active Vital Signs [RC] Q4H Care 04/09/17 16:29 Active Consult to Physical Therapy [PT Evaluation and Cons 04/09/17 16:27 Active Treatment] [CONS] Routine Regular Diet [DIET] Diet 04/09/17 Dinner Active HEMOGLOBIN/HEMATOCRIT,HH [HEME] AM Lab 04/11/17 05:11 Ordered HEMOGLOBIN/HEMATOCRIT,HH [HEME] AM Lab 04/12/17 05:11 Ordered Acetaminophen [Tylenol Extra Strength] Med 04/09/17 15:45 Active 1,000 mg PO Q6H Aspirin Med 04/10/17 09:00 Active 325 mg PO BID Celecoxib [CeleBREX] Med 04/10/17 09:00 Active 200 mg PO BID Citalopram [Celexa] Med 04/10/17 09:00 Active 40 mg PO DAILY Docusate Sodium [Colace] Med 04/09/17 21:00 Active 100 mg PO BID Pantoprazole [ProTONIX] Med 04/10/17 09:00 Active 40 mg PO DAILY Patient's Own Medication [Ptom] Med 04/10/17 09:00 Active 1 each PO DAILY Sodium Chloride 0.9% [Saline Flush] Med 04/10/17 08:47 Active 10 ml FLUSH ASDIRECTED PRN Sodium Chloride 0.9% [Saline Flush] Med 04/10/17 08:47 Active 2.5 ml FLUSH ASDIRECTED PRN Topiramate [Topamax] Med 04/10/17 09:00 Active 100 mg PO DAILY hydrOXYzine HCl [Atarax] Med 04/10/17 04:17 Active 25 mg PO Q8H PRN Convert IV to Saline Lock [OM.PC] Routine Oth 04/10/17 08:47 Ordered Medication Orders Acetaminophen (Tylenol Extra Strength) 1,000 mg PO Q6H [facility] Last Admin: 04/10/17 09:24 Dose: 1,000 mg Admin: 04/10/17 02:47 Dose: 1,000 mg Admin: 04/09/17 21:02 Dose: 1,000 mg Admin: 04/09/17 18:48 Dose: Aspirin (Aspirin) 325 mg PO BID [facility] Last Admin: 04/10/17 09:23 Dose: 325 mg Celecoxib (Celebrex) 200 mg PO BID [facility] Last Admin: 04/10/17 09:24 Dose: 200 mg Citalopram Hydrobromide (Celexa) 40 mg PO DAILY [facility] Last Admin: 04/10/17 09:24 Dose: 40 mg Diphenhydramine HCl (Benadryl) 0 mg PO Q6H PRN PRN Reason: Itching Last Admin: 04/10/17 03:32 Dose: 25 mg Admin: 04/10/17 01:04 Dose: 25 mg Admin: 04/09/17 19:23 Dose: 50 mg Docusate Sodium (Colace) 100 mg PO BID [facility] Last Admin: 04/10/17 09:24 Dose: 100 mg Admin: 04/09/17 21:04 Dose: 100 mg Hydromorphone HCl (Dilaudid) 0 mg IVPUSH Q3H PRN PRN Reason: Pain Last Admin: 04/09/17 23:14 Dose: 1 mg Hydroxyzine HCl (Atarax) 25 mg PO Q8H PRN PRN Reason: Itching Last Admin: 04/10/17 04:30 Dose: 25 mg Lactated Ringer's (Ringers, Lactated) 1,000 mls @ 100 mls/hr IV ASDIRECTED [facility] Last Admin: 04/10/17 02:41 Dose: 100 mls/hr Ondansetron HCl (Zofran) 4 mg IVPUSH Q6H PRN PRN Reason: Nausea/Vomiting Oxycodone HCl (Oxycodone) 0 mg PO Q4H PRN PRN Reason: Pain Last Admin: 04/10/17 09:40 Dose: 10 mg Admin: 04/10/17 01:08 Dose: 5 mg Oxycodone HCl (Oxycontin) 10 mg PO Q12HR [facility] Last Admin: 04/10/17 09:24 Dose: 10 mg Admin: 04/09/17 21:03 Dose: 10 mg Admin: 04/09/17 18:45 Dose: Pantoprazole Sodium (Protonix) 40 mg PO DAILY [facility] Last Admin: 04/10/17 09:25 Dose: 40 mg Patient Own Medication (Ptom) 1 each PO DAILY [facility] Last Admin: 04/10/17 09:14 Dose: Scopolamine (Transderm-Scop) 1.5 mg TRDERM ONARRIVE [facility] Sodium Chloride (Saline Flush) 10 ml FLUSH ASDIRECTED PRN PRN Reason: Keep Vein Open Sodium Chloride (Saline Flush) 2.5 ml FLUSH ASDIRECTED PRN PRN Reason: Keep Vein Open Topiramate (Topamax) 100 mg PO DAILY [facility] Last Admin: 04/10/17 09:24 Dose: 100 mg - Plan Plan (Free Text/Narrative):: 1115 Patient seen and examined. Agree with the above note. Patient is progressing slowly with physical therapy. Her pain has been well-controlled. She has no other complaints today. Hemoglobin remained stable. Exam of the knee shows the dressing to be dry and intact. AT/EHL/gastroc 08/24. Sensation grossly intact. DP/PT pulses 2+. 1. Continue physical therapy 2. Continue current pain management 3. Aspirin for DVT prophylaxis 4. Plan discharge to swing bed on Saturday rrk
[2017-04-10] MEDS: PRESERVISION PO SCH (09:14)
--- NOTE | 2017-04-10 09:16 | CR ---
EXAMINATION: Left knee HISTORY: TKA COMPARISON: 03/08/2017 TECHNIQUE: 2 views FINDINGS/IMPRESSION: Left total knee hardware is demonstrated in good position and alignment. Postope rative soft tissue changes are noted.
[2017-04-10] MEDS: Aspirin 325 MG Tab PO SCH ×2 (09:23→20:35)
[2017-04-10] MEDS: oxyCODONE ER 10 MG TAB.ER PO SCH ×2 (09:24→20:36)
[2017-04-10] MEDS: Topiramate 100 MG Tab PO SCH (09:24)
[2017-04-10] MEDS: Citalopram 20 MG Tab PO SCH (09:24)
[2017-04-10] MEDS: Celecoxib 100 MG Cap PO SCH ×2 (09:24→20:36)
[2017-04-10] MEDS: Docusate Sodium 100 MG Cap PO SCH ×2 (09:24→20:35)
[2017-04-10] MEDS: Pantoprazole 40 MG Tab.CR PO SCH (09:25)
[2017-04-10] MEDS: HYDROmorphone 1 MG/ML Syringe IVPUSH PRN (13:00)
[2017-04-11] MEDS: oxyCODONE 5 MG Tab PO PRN ×3 (02:08→14:51)
[2017-04-11] MEDS: Acetaminophen 500 MG Tab PO SCH ×4 (03:55→21:38)
[2017-04-11] MEDS: hydrOXYzine HCl 25 MG Tab PO PRN (04:32)
[2017-04-11] MEDS: Celecoxib 100 MG Cap PO SCH ×2 (08:27→20:28)
[2017-04-11] MEDS: oxyCODONE ER 10 MG TAB.ER PO SCH ×2 (08:27→20:28)
--- NOTE | 2017-04-11 09:19 | PCM.SURGPN ---
<[place] Gutierres R - Last Filed: 04/11/17 09:16> - General Info Date of Service: 04/11/17 Date of Surgery/Procedure: 04/09/17 POD#: 2 Functional Status: Reports: Pain Controlled, Tolerating Diet, Ambulating, Urinating - Review of Systems General: Reports: No Symptoms Musculoskeletal: Reports: Leg Pain Systems Review Comment:: pt resting comfortably in bed pain controlled with pain pills increased pain with activity but tolerable ambulating well with wheeled walker itching improved c/o L calf pain today with activity scheduled for transfer to [facility] for rehab tomorrow - Patient Data Vitals - Most Recent: Last Vital Signs Temp 96.6 F 04/11/17 08:00 Pulse 75 04/11/17 08:00 Resp 20 04/11/17 08:00 BP 153/70 H 04/11/17 08:00 Pulse Ox 96 04/11/17 08:00 Weight - Most Recent: 86.183 kg I&O - Last 24 Hours: Intake & Output 04/10/17 04/11/17 04/11/17 22:59 06:59 14:59 Intake Total 1850 1090 Output Total 1945 3000 Balance -95 -1910 Lab Results Last 24 Hrs: Laboratory Results - last 24 hr 04/11/17 Range/Units 05:27 Hgb 12.1 (12.0-16.0) g/dL Hct 35.2 L (36.0-46.0) % Med Orders - Current: Current Medications Acetaminophen (Tylenol Extra Strength) 1,000 mg PO Q6H [facility] Last Admin: 04/11/17 03:55 Dose: 1,000 mg Aspirin (Aspirin) 325 mg PO BID [facility] Last Admin: 04/10/17 20:35 Dose: 325 mg Celecoxib (Celebrex) 200 mg PO BID [facility] Last Admin: 04/11/17 08:27 Dose: 200 mg Citalopram Hydrobromide (Celexa) 40 mg PO DAILY [facility] Last Admin: 04/10/17 09:24 Dose: 40 mg Diphenhydramine HCl (Benadryl) 0 mg PO Q6H PRN PRN Reason: Itching Last Admin: 04/10/17 03:32 Dose: 25 mg Docusate Sodium (Colace) 100 mg PO BID [facility] Last Admin: 04/10/17 20:35 Dose: 100 mg Hydromorphone HCl (Dilaudid) 0 mg IVPUSH Q3H PRN PRN Reason: Pain Last Admin: 04/10/17 13:00 Dose: 1 mg Hydroxyzine HCl (Atarax) 25 mg PO Q8H PRN PRN Reason: Itching Last Admin: 04/11/17 04:32 Dose: 25 mg Ondansetron HCl (Zofran) 4 mg IVPUSH Q6H PRN PRN Reason: Nausea/Vomiting Last Admin: 04/10/17 15:56 Dose: 4 mg Oxycodone HCl (Oxycodone) 0 mg PO Q4H PRN PRN Reason: Pain Last Admin: 04/11/17 02:08 Dose: 5 mg Oxycodone HCl (Oxycontin) 10 mg PO Q12HR [facility] Last Admin: 04/11/17 08:27 Dose: 10 mg Pantoprazole Sodium (Protonix) 40 mg PO DAILY [facility] Last Admin: 04/10/17 09:25 Dose: 40 mg Patient Own Medication (Ptom) 1 each PO DAILY [facility] Last Admin: 04/10/17 09:14 Dose: Not Given Scopolamine (Transderm-Scop) 1.5 mg TRDERM ONARRIVE [facility] Sodium Chloride (Saline Flush) 10 ml FLUSH ASDIRECTED PRN PRN Reason: Keep Vein Open Sodium Chloride (Saline Flush) 2.5 ml FLUSH ASDIRECTED PRN PRN Reason: Keep Vein Open Topiramate (Topamax) 100 mg PO DAILY [facility] Last Admin: 04/10/17 09:24 Dose: 100 mg Discontinued Medications Diphenhydramine HCl (Benadryl) Confirm Administered Dose 50 mg .ROUTE .STK-MED ONE Stop: 04/09/17 12:15 Last Admin: 04/09/17 18:46 Dose: Not Given Diphenhydramine HCl (Benadryl) Confirm Administered Dose 50 mg .ROUTE .STK-MED ONE Stop: 04/09/17 14:07 Last Admin: 04/09/17 18:46 Dose: Not Given Ephedrine Sulfate (Ephedrine Sulfate) Confirm Administered Dose 50 mg .ROUTE .STK-MED ONE Stop: 04/09/17 09:23 Famotidine (Pepcid) 40 mg IVPUSH ONARRIVE [facility] Famotidine (Pepcid) 40 mg IVPUSH ONARRIVE [facility] Stop: 04/09/17 14:01 Fentanyl (Sublimaze) Confirm Administered Dose 100 mcg .ROUTE .STK-MED ONE Stop: 04/09/17 09:23 Fentanyl (Sublimaze) Confirm Administered Dose 100 mcg .ROUTE .STK-MED ONE Stop: 04/09/17 09:24 Fentanyl (Sublimaze) Confirm Administered Dose 100 mcg .ROUTE .STK-MED ONE Stop: 04/09/17 10:37 Fentanyl (Sublimaze) Confirm Administered Dose 100 mcg .ROUTE .STK-MED ONE Stop: 04/09/17 11:05 Fentanyl (Sublimaze) Confirm Administered Dose 100 mcg .ROUTE .STK-MED ONE Stop: 04/09/17 12:04 Last Admin: 04/09/17 18:45 Dose: Not Given Fentanyl (Sublimaze) Confirm Administered Dose 100 mcg .ROUTE .STK-MED ONE Stop: 04/09/17 12:13 Last Admin: 04/09/17 18:46 Dose: Not Given Hydromorphone HCl (Dilaudid) Confirm Administered Dose 2 mg .ROUTE .STK-MED ONE Stop: 04/09/17 10:18 Hydromorphone HCl (Dilaudid) Confirm Administered Dose 1 mg .ROUTE .STK-MED ONE Stop: 04/09/17 13:18 Last Admin: 04/09/17 18:46 Dose: Not Given Hydromorphone HCl (Dilaudid) Confirm Administered Dose 1 mg .ROUTE .STK-MED ONE Stop: 04/09/17 17:37 Last Admin: 04/09/17 18:48 Dose: Not Given Acetaminophen 1,000 mg/ Premix 100 mls @ 400 mls/hr IV ONARRIVE [facility] Cefazolin Sodium/Dextrose 2 gm (/ Premix) 50 mls @ 100 mls/hr IV ONCALL [facility] Lactated Ringer's (Ringers, Lactated) 1,000 mls @ 100 mls/hr IV ASDIRECTED [facility] Stop: 04/09/17 14:01 Tranexamic Acid 4,000 mg/ (Sodium Chloride) 140 mls @ 600 mls/hr IV ASDIRECTED [facility] Stop: 04/09/17 14:01 Ropivacaine 49.25 ml/Ketorolac Tromethamine 30 mg/Epinephrine HCl 0.5 mg/ Clonidine HCl 80 mcg/ Sodium Chloride 100 mls @ 2,975.207 mls/hr INJECT ASDIRECTED [facility] Stop: 04/09/17 14:01 Acetaminophen 1,000 mg/ Premix 100 mls @ 400 mls/hr IV ONARRIVE [facility] Stop: 04/09/17 14:01 Cefazolin Sodium/Dextrose 2 gm (/ Premix) 50 mls @ 100 mls/hr IV ONCALL [facility] Stop: 04/09/17 14:01 Tranexamic Acid 4,000 mg/ (Sodium Chloride) 140 mls @ 600 mls/hr IV ASDIRECTED [facility] Stop: 04/09/17 14:01 Lactated Ringer's (Ringers, Lactated) 1,000 mls @ 100 mls/hr IV ASDIRECTED [facility] Last Admin: 04/10/17 02:41 Dose: 100 mls/hr Acetaminophen 1,000 mg/ Premix 100 mls @ 400 mls/hr IV Q6H PRN PRN Reason: Pain Cefazolin Sodium/Dextrose 2 gm (/ Premix) 50 mls @ 100 mls/hr IV Q8H [facility] Stop: 04/10/17 02:29 Last Admin: 04/10/17 02:39 Dose: 100 mls/hr Acetaminophen (Ofirmev) Confirm Administered Dose 100 mls @ as directed IV .STK- MED ONE Stop: 04/09/17 13:30 Last Admin: 04/09/17 18:46 Dose: Not Given Ketorolac Tromethamine (Toradol) 15 mg IVPUSH ONARRIVE [facility] Stop: 04/09/17 14:01 Ketorolac Tromethamine (Toradol) 30 mg IVPUSH Q6H [facility] Stop: 04/10/17 04:00 Last Admin: 04/10/17 02:37 Dose: 30 mg Ketorolac Tromethamine (Toradol) Confirm Administered Dose 30 mg .ROUTE .STK- MED ONE Stop: 04/09/17 14:07 Last Admin: 04/09/17 18:46 Dose: Not Given Lidocaine (Xylocaine-Mpf 2%) Confirm Administered Dose 10 ml .ROUTE .STK-MED ONE Stop: 04/09/17 09:23 Midazolam HCl (Versed 1 Mg/Ml) Confirm Administered Dose 2 mg .ROUTE .STK-MED ONE Stop: 04/09/17 09:24 Ondansetron HCl (Zofran) Confirm Administered Dose 4 mg .ROUTE .STK-MED ONE Stop: 04/09/17 10:44 Oxycodone HCl (Oxycontin) 10 mg PO ONARRIVE [facility] Stop: 04/09/17 14:01 Oxycodone HCl (Oxycodone) Confirm Administered Dose 10 mg .ROUTE .STK-MED ONE Stop: 04/09/17 15:22 Last Admin: 04/09/17 18:47 Dose: Not Given Propofol (Diprivan 20 Ml) Confirm Administered Dose 400 mg .ROUTE .STK-MED ONE Stop: 04/09/17 09:24 Scopolamine (Transderm-Scop) 1.5 mg TRDERM ONARRIVE [facility] Succinylcholine Chloride (Succinylcholine In Ns Pf) Confirm Administered Dose 200 mg .ROUTE .STK-MED ONE Stop: 04/09/17 10:17 Tranexamic Acid (Cyklokapron) Confirm Administered Dose 4,000 mg .ROUTE .STK- MED ONE Stop: 04/09/17 09:33 - Exam Wound/Incisions: Healing Well, Drainage (serosanguinous drainage from incision site). No: Erythema General: Alert, Oriented Cardiovascular: Regular Rate, Regular Rhythm Extremities: Other (LLE - at/ehl/gastroc 5/5, dp 2+, sensation intact. calf soft and NTTP). No: Lida's Sign Physical Findings Comment:: vss, afeb hgb 12.1 - Problem List Review Problem List Initiated/Reviewed/Updated: Yes - My Orders Last 24 Hours: Active Orders 24 hr Category Date Time Status HEMOGLOBIN/HEMATOCRIT,HH [HEME] AM Lab 04/12/17 05:11 Ordered Aspirin Med 04/10/17 09:00 Active 325 mg PO BID Celecoxib [CeleBREX] Med 04/10/17 09:00 Active 200 mg PO BID Citalopram [Celexa] Med 04/10/17 09:00 Active 40 mg PO DAILY Pantoprazole [ProTONIX] Med 04/10/17 09:00 Active 40 mg PO DAILY Patient's Own Medication [Ptom] Med 04/10/17 09:00 Active 1 each PO DAILY Sodium Chloride 0.9% [Saline Flush] Med 04/10/17 08:47 Active 10 ml FLUSH ASDIRECTED PRN Sodium Chloride 0.9% [Saline Flush] Med 04/10/17 08:47 Active 2.5 ml FLUSH ASDIRECTED PRN Topiramate [Topamax] Med 04/10/17 09:00 Active 100 mg PO DAILY Convert IV to Saline Lock [OM.PC] Routine Oth 04/10/17 08:47 Ordered Medication Orders Acetaminophen (Tylenol Extra Strength) 1,000 mg PO Q6H [facility] Last Admin: 04/11/17 03:55 Dose: 1,000 mg Admin: 04/10/17 21:42 Dose: 1,000 mg Admin: 04/10/17 15:55 Dose: 1,000 mg Admin: 04/10/17 09:24 Dose: 1,000 mg Admin: 04/10/17 02:47 Dose: 1,000 mg Admin: 04/09/17 21:02 Dose: 1,000 mg Admin: 04/09/17 18:48 Dose: Aspirin (Aspirin) 325 mg PO BID [facility] Last Admin: 04/10/17 20:35 Dose: 325 mg Admin: 04/10/17 09:23 Dose: 325 mg Celecoxib (Celebrex) 200 mg PO BID [facility] Last Admin: 04/11/17 08:27 Dose: 200 mg Admin: 04/10/17 20:36 Dose: 200 mg Admin: 04/10/17 09:24 Dose: 200 mg Citalopram Hydrobromide (Celexa) 40 mg PO DAILY [facility] Last Admin: 04/10/17 09:24 Dose: 40 mg Diphenhydramine HCl (Benadryl) 0 mg PO Q6H PRN PRN Reason: Itching Last Admin: 04/10/17 03:32 Dose: 25 mg Admin: 04/10/17 01:04 Dose: 25 mg Admin: 04/09/17 19:23 Dose: 50 mg Docusate Sodium (Colace) 100 mg PO BID [facility] Last Admin: 04/10/17 20:35 Dose: 100 mg Admin: 04/10/17 09:24 Dose: 100 mg Admin: 04/09/17 21:04 Dose: 100 mg Hydromorphone HCl (Dilaudid) 0 mg IVPUSH Q3H PRN PRN Reason: Pain Last Admin: 04/10/17 13:00 Dose: 1 mg Admin: 04/09/17 23:14 Dose: 1 mg Hydroxyzine HCl (Atarax) 25 mg PO Q8H PRN PRN Reason: Itching Last Admin: 04/11/17 04:32 Dose: 25 mg Admin: 04/10/17 15:56 Dose: 25 mg Admin: 04/10/17 04:30 Dose: 25 mg Ondansetron HCl (Zofran) 4 mg IVPUSH Q6H PRN PRN Reason: Nausea/Vomiting Last Admin: 04/10/17 15:56 Dose: 4 mg Oxycodone HCl (Oxycodone) 0 mg PO Q4H PRN PRN Reason: Pain Last Admin: 04/11/17 02:08 Dose: 5 mg Admin: 04/10/17 21:42 Dose: 10 mg Admin: 04/10/17 15:56 Dose: 5 mg Admin: 04/10/17 14:24 Dose: 5 mg Admin: 04/10/17 09:40 Dose: 10 mg Admin: 04/10/17 01:08 Dose: 5 mg Oxycodone HCl (Oxycontin) 10 mg PO Q12HR [facility] Last Admin: 04/11/17 08:27 Dose: 10 mg Admin: 04/10/17 20:36 Dose: 10 mg Admin: 04/10/17 09:24 Dose: 10 mg Admin: 04/09/17 21:03 Dose: 10 mg Admin: 04/09/17 18:45 Dose: Pantoprazole Sodium (Protonix) 40 mg PO DAILY [facility] Last Admin: 04/10/17 09:25 Dose: 40 mg Patient Own Medication (Ptom) 1 each PO DAILY [facility] Last Admin: 04/10/17 09:14 Dose: Scopolamine (Transderm-Scop) 1.5 mg TRDERM ONARRIVE [facility] Sodium Chloride (Saline Flush) 10 ml FLUSH ASDIRECTED PRN PRN Reason: Keep Vein Open Sodium Chloride (Saline Flush) 2.5 ml FLUSH ASDIRECTED PRN PRN Reason: Keep Vein Open Topiramate (Topamax) 100 mg PO DAILY [facility] Last Admin: 04/10/17 09:24 Dose: 100 mg - Assessment Assessment (Free Text/Narrative):: POD#2 L TKA - Plan Plan (Free Text/Narrative):: continue pain management continue PT dressing changed to Aquacel dressing transfer to [facility] tomorrow <AaronLatasha Vivien - Last Filed: 04/11/17 10:59> - Patient Data Vitals - Most Recent: Last Vital Signs Temp 96.6 F 04/11/17 08:00 Pulse 75 04/11/17 08:00 Resp 20 04/11/17 08:00 BP 153/70 H 04/11/17 08:00 Pulse Ox 96 04/11/17 08:00 I&O - Last 24 Hours: Intake & Output 04/10/17 04/11/17 04/11/17 22:59 06:59 14:59 Intake Total 1850 1090 Output Total 1945 3000 Balance -95 -1910 Lab Results Last 24 Hrs: Laboratory Results - last 24 hr 04/11/17 Range/Units 05:27 Hgb 12.1 (12.0-16.0) g/dL Hct 35.2 L (36.0-46.0) % Med Orders - Current: Current Medications Acetaminophen (Tylenol Extra Strength) 1,000 mg PO Q6H [facility] Last Admin: 04/11/17 09:25 Dose: 1,000 mg Aspirin (Aspirin) 325 mg PO BID [facility] Last Admin: 04/11/17 09:25 Dose: 325 mg Celecoxib (Celebrex) 200 mg PO BID [facility] Last Admin: 04/11/17 08:27 Dose: 200 mg Citalopram Hydrobromide (Celexa) 40 mg PO DAILY [facility] Last Admin: 04/11/17 09:24 Dose: 40 mg Diphenhydramine HCl (Benadryl) 0 mg PO Q6H PRN PRN Reason: Itching Last Admin: 04/10/17 03:32 Dose: 25 mg Docusate Sodium (Colace) 100 mg PO BID [facility] Last Admin: 04/11/17 09:24 Dose: 100 mg Hydromorphone HCl (Dilaudid) 0 mg IVPUSH Q3H PRN PRN Reason: Pain Last Admin: 04/10/17 13:00 Dose: 1 mg Hydroxyzine HCl (Atarax) 25 mg PO Q8H PRN PRN Reason: Itching Last Admin: 04/11/17 04:32 Dose: 25 mg Ondansetron HCl (Zofran) 4 mg IVPUSH Q6H PRN PRN Reason: Nausea/Vomiting Last Admin: 04/10/17 15:56 Dose: 4 mg Oxycodone HCl (Oxycodone) 0 mg PO Q4H PRN PRN Reason: Pain Last Admin: 04/11/17 09:29 Dose: 10 mg Oxycodone HCl (Oxycontin) 10 mg PO Q12HR [facility] Last Admin: 04/11/17 08:27 Dose: 10 mg Pantoprazole Sodium (Protonix) 40 mg PO DAILY [facility] Last Admin: 04/11/17 09:25 Dose: 40 mg Patient Own Medication (Ptom) 1 each PO DAILY [facility] Last Admin: 04/11/17 09:25 Dose: Not Given Scopolamine (Transderm-Scop) 1.5 mg TRDERM ONARRIVE [facility] Sodium Chloride (Saline Flush) 10 ml FLUSH ASDIRECTED PRN PRN Reason: Keep Vein Open Sodium Chloride (Saline Flush) 2.5 ml FLUSH ASDIRECTED PRN PRN Reason: Keep Vein Open Topiramate (Topamax) 100 mg PO DAILY [facility] Last Admin: 04/11/17 09:25 Dose: 100 mg Discontinued Medications Diphenhydramine HCl (Benadryl) Confirm Administered Dose 50 mg .ROUTE .STK-MED ONE Stop: 04/09/17 12:15 Last Admin: 04/09/17 18:46 Dose: Not Given Diphenhydramine HCl (Benadryl) Confirm Administered Dose 50 mg .ROUTE .STK-MED ONE Stop: 04/09/17 14:07 Last Admin: 04/09/17 18:46 Dose: Not Given Ephedrine Sulfate (Ephedrine Sulfate) Confirm Administered Dose 50 mg .ROUTE .STK-MED ONE Stop: 04/09/17 09:23 Famotidine (Pepcid) 40 mg IVPUSH ONARRIVE [facility] Famotidine (Pepcid) 40 mg IVPUSH ONARRIVE [facility] Stop: 04/09/17 14:01 Fentanyl (Sublimaze) Confirm Administered Dose 100 mcg .ROUTE .STK-MED ONE Stop: 04/09/17 09:23 Fentanyl (Sublimaze) Confirm Administered Dose 100 mcg .ROUTE .STK-MED ONE Stop: 04/09/17 09:24 Fentanyl (Sublimaze) Confirm Administered Dose 100 mcg .ROUTE .STK-MED ONE Stop: 04/09/17 10:37 Fentanyl (Sublimaze) Confirm Administered Dose 100 mcg .ROUTE .STK-MED ONE Stop: 04/09/17 11:05 Fentanyl (Sublimaze) Confirm Administered Dose 100 mcg .ROUTE .STK-MED ONE Stop: 04/09/17 12:04 Last Admin: 04/09/17 18:45 Dose: Not Given Fentanyl (Sublimaze) Confirm Administered Dose 100 mcg .ROUTE .STK-MED ONE Stop: 04/09/17 12:13 Last Admin: 04/09/17 18:46 Dose: Not Given Hydromorphone HCl (Dilaudid) Confirm Administered Dose 2 mg .ROUTE .STK-MED ONE Stop: 04/09/17 10:18 Hydromorphone HCl (Dilaudid) Confirm Administered Dose 1 mg .ROUTE .STK-MED ONE Stop: 04/09/17 13:18 Last Admin: 04/09/17 18:46 Dose: Not Given Hydromorphone HCl (Dilaudid) Confirm Administered Dose 1 mg .ROUTE .STK-MED ONE Stop: 04/09/17 17:37 Last Admin: 04/09/17 18:48 Dose: Not Given Acetaminophen 1,000 mg/ Premix 100 mls @ 400 mls/hr IV ONARRIVE [facility] Cefazolin Sodium/Dextrose 2 gm (/ Premix) 50 mls @ 100 mls/hr IV ONCALL [facility] Lactated Ringer's (Ringers, Lactated) 1,000 mls @ 100 mls/hr IV ASDIRECTED [facility] Stop: 04/09/17 14:01 Tranexamic Acid 4,000 mg/ (Sodium Chloride) 140 mls @ 600 mls/hr IV ASDIRECTED [facility] Stop: 04/09/17 14:01 Ropivacaine 49.25 ml/Ketorolac Tromethamine 30 mg/Epinephrine HCl 0.5 mg/ Clonidine HCl 80 mcg/ Sodium Chloride 100 mls @ 2,975.207 mls/hr INJECT ASDIRECTED [facility] Stop: 04/09/17 14:01 Acetaminophen 1,000 mg/ Premix 100 mls @ 400 mls/hr IV ONARRIVE [facility] Stop: 04/09/17 14:01 Cefazolin Sodium/Dextrose 2 gm (/ Premix) 50 mls @ 100 mls/hr IV ONCALL [facility] Stop: 04/09/17 14:01 Tranexamic Acid 4,000 mg/ (Sodium Chloride) 140 mls @ 600 mls/hr IV ASDIRECTED [facility] Stop: 04/09/17 14:01 Lactated Ringer's (Ringers, Lactated) 1,000 mls @ 100 mls/hr IV ASDIRECTED [facility] Last Admin: 04/10/17 02:41 Dose: 100 mls/hr Acetaminophen 1,000 mg/ Premix 100 mls @ 400 mls/hr IV Q6H PRN PRN Reason: Pain Cefazolin Sodium/Dextrose 2 gm (/ Premix) 50 mls @ 100 mls/hr IV Q8H [facility] Stop: 04/10/17 02:29 Last Admin: 04/10/17 02:39 Dose: 100 mls/hr Acetaminophen (Ofirmev) Confirm Administered Dose 100 mls @ as directed IV .STK- MED ONE Stop: 04/09/17 13:30 Last Admin: 04/09/17 18:46 Dose: Not Given Ketorolac Tromethamine (Toradol) 15 mg IVPUSH ONARRIVE [facility] Stop: 04/09/17 14:01 Ketorolac Tromethamine (Toradol) 30 mg IVPUSH Q6H [facility] Stop: 04/10/17 04:00 Last Admin: 04/10/17 02:37 Dose: 30 mg Ketorolac Tromethamine (Toradol) Confirm Administered Dose 30 mg .ROUTE .STK- MED ONE Stop: 04/09/17 14:07 Last Admin: 04/09/17 18:46 Dose: Not Given Lidocaine (Xylocaine-Mpf 2%) Confirm Administered Dose 10 ml .ROUTE .STK-MED ONE Stop: 04/09/17 09:23 Midazolam HCl (Versed 1 Mg/Ml) Confirm Administered Dose 2 mg .ROUTE .STK-MED ONE Stop: 04/09/17 09:24 Ondansetron HCl (Zofran) Confirm Administered Dose 4 mg .ROUTE .STK-MED ONE Stop: 04/09/17 10:44 Oxycodone HCl (Oxycontin) 10 mg PO ONARRIVE [facility] Stop: 04/09/17 14:01 Oxycodone HCl (Oxycodone) Confirm Administered Dose 10 mg .ROUTE .STK-MED ONE Stop: 04/09/17 15:22 Last Admin: 04/09/17 18:47 Dose: Not Given Propofol (Diprivan 20 Ml) Confirm Administered Dose 400 mg .ROUTE .STK-MED ONE Stop: 04/09/17 09:24 Scopolamine (Transderm-Scop) 1.5 mg TRDERM ONARRIVE [facility] Succinylcholine Chloride (Succinylcholine In Ns Pf) Confirm Administered Dose 200 mg .ROUTE .STK-MED ONE Stop: 04/09/17 10:17 Tranexamic Acid (Cyklokapron) Confirm Administered Dose 4,000 mg .ROUTE .STK- MED ONE Stop: 04/09/17 09:33 - My Orders Last 24 Hours: Active Orders 24 hr Category Date Time Status Ready for Discharge [RC] PER UNIT ROUTINE Care 04/12/17 08:00 Active HEMOGLOBIN/HEMATOCRIT,HH [HEME] AM Lab 04/12/17 05:11 Ordered Medication Orders Acetaminophen (Tylenol Extra Strength) 1,000 mg PO Q6H [facility] Last Admin: 04/11/17 09:25 Dose: 1,000 mg Admin: 04/11/17 03:55 Dose: 1,000 mg Admin: 04/10/17 21:42 Dose: 1,000 mg Admin: 04/10/17 15:55 Dose: 1,000 mg Admin: 04/10/17 09:24 Dose: 1,000 mg Admin: 04/10/17 02:47 Dose: 1,000 mg Admin: 04/09/17 21:02 Dose: 1,000 mg Admin: 04/09/17 18:48 Dose: Aspirin (Aspirin) 325 mg PO BID [facility] Last Admin: 04/11/17 09:25 Dose: 325 mg Admin: 04/10/17 20:35 Dose: 325 mg Admin: 04/10/17 09:23 Dose: 325 mg Celecoxib (Celebrex) 200 mg PO BID [facility] Last Admin: 04/11/17 08:27 Dose: 200 mg Admin: 04/10/17 20:36 Dose: 200 mg Admin: 04/10/17 09:24 Dose: 200 mg Citalopram Hydrobromide (Celexa) 40 mg PO DAILY [facility] Last Admin: 04/11/17 09:24 Dose: 40 mg Admin: 04/10/17 09:24 Dose: 40 mg Diphenhydramine HCl (Benadryl) 0 mg PO Q6H PRN PRN Reason: Itching Last Admin: 04/10/17 03:32 Dose: 25 mg Admin: 04/10/17 01:04 Dose: 25 mg Admin: 04/09/17 19:23 Dose: 50 mg Docusate Sodium (Colace) 100 mg PO BID [facility] Last Admin: 04/11/17 09:24 Dose: 100 mg Admin: 04/10/17 20:35 Dose: 100 mg Admin: 04/10/17 09:24 Dose: 100 mg Admin: 04/09/17 21:04 Dose: 100 mg Hydromorphone HCl (Dilaudid) 0 mg IVPUSH Q3H PRN PRN Reason: Pain Last Admin: 04/10/17 13:00 Dose: 1 mg Admin: 04/09/17 23:14 Dose: 1 mg Hydroxyzine HCl (Atarax) 25 mg PO Q8H PRN PRN Reason: Itching Last Admin: 04/11/17 04:32 Dose: 25 mg Admin: 04/10/17 15:56 Dose: 25 mg Admin: 04/10/17 04:30 Dose: 25 mg Ondansetron HCl (Zofran) 4 mg IVPUSH Q6H PRN PRN Reason: Nausea/Vomiting Last Admin: 04/10/17 15:56 Dose: 4 mg Oxycodone HCl (Oxycodone) 0 mg PO Q4H PRN PRN Reason: Pain Last Admin: 04/11/17 09:29 Dose: 10 mg Admin: 04/11/17 02:08 Dose: 5 mg Admin: 04/10/17 21:42 Dose: 10 mg Admin: 04/10/17 15:56 Dose: 5 mg Admin: 04/10/17 14:24 Dose: 5 mg Admin: 04/10/17 09:40 Dose: 10 mg Admin: 04/10/17 01:08 Dose: 5 mg Oxycodone HCl (Oxycontin) 10 mg PO Q12HR [facility] Last Admin: 04/11/17 08:27 Dose: 10 mg Admin: 04/10/17 20:36 Dose: 10 mg Admin: 04/10/17 09:24 Dose: 10 mg Admin: 04/09/17 21:03 Dose: 10 mg Admin: 04/09/17 18:45 Dose: Pantoprazole Sodium (Protonix) 40 mg PO DAILY [facility] Last Admin: 04/11/17 09:25 Dose: 40 mg Admin: 04/10/17 09:25 Dose: 40 mg Patient Own Medication (Ptom) 1 each PO DAILY [facility] Last Admin: 04/11/17 09:25 Dose: Admin: 04/10/17 09:14 Dose: Scopolamine (Transderm-Scop) 1.5 mg TRDERM ONARRIVE [facility] Sodium Chloride (Saline Flush) 10 ml FLUSH ASDIRECTED PRN PRN Reason: Keep Vein Open Sodium Chloride (Saline Flush) 2.5 ml FLUSH ASDIRECTED PRN PRN Reason: Keep Vein Open Topiramate (Topamax) 100 mg PO DAILY [facility] Last Admin: 04/11/17 09:25 Dose: 100 mg Admin: 04/10/17 09:24 Dose: 100 mg - Plan Plan (Free Text/Narrative):: 1035 Patient seen and examined. Agree with above. Patient has been up with PT. Pain controlled. Hgb stable. VSS, afeb Dressing dry/intact. NVI. POD #2 1. continue PT 2. continue current pain meds 3. ASA for DVT prophylaxis 4. plan d/charge to tomorrow rrk
[2017-04-11] MEDS: Docusate Sodium 100 MG Cap PO SCH ×2 (09:24→20:27)
[2017-04-11] MEDS: Citalopram 20 MG Tab PO SCH (09:24)
[2017-04-11] MEDS: Topiramate 100 MG Tab PO SCH (09:25)
[2017-04-11] MEDS: Pantoprazole 40 MG Tab.CR PO SCH (09:25)
[2017-04-11] MEDS: PRESERVISION PO SCH (09:25)
[2017-04-11] MEDS: Aspirin 325 MG Tab PO SCH ×2 (09:25→20:27)
[2017-04-11] MEDS: HYDROmorphone 1 MG/ML Syringe IVPUSH PRN (17:19)
[2017-04-12] MEDS: HYDROmorphone 1 MG/ML Syringe IVPUSH PRN (01:45)
[2017-04-12] MEDS: hydrOXYzine HCl 25 MG Tab PO PRN (02:25)
[2017-04-12] MEDS: Acetaminophen 500 MG Tab PO SCH ×2 (03:30→08:56)
[2017-04-12] MEDS: Aspirin 325 MG Tab PO SCH (08:21)
[2017-04-12] MEDS: oxyCODONE ER 10 MG TAB.ER PO SCH (08:21)
[2017-04-12] MEDS: Pantoprazole 40 MG Tab.CR PO SCH (08:22)
[2017-04-12] MEDS: Celecoxib 100 MG Cap PO SCH (08:22)
[2017-04-12] MEDS: Citalopram 20 MG Tab PO SCH (08:22)
[2017-04-12] MEDS: Docusate Sodium 100 MG Cap PO SCH (08:22)
[2017-04-12] MEDS: PRESERVISION PO SCH (08:22)
[2017-04-12 08:42] VITALS: BP 141/62
--- NOTE | 2017-04-12 09:01 | PCM.SURGPN ---
- General Info Date of Service: 04/12/17 Date of Surgery/Procedure: 04/09/17 POD#: 3 Functional Status: Reports: Pain Controlled, Tolerating Diet, Ambulating, Urinating - Review of Systems General: Reports: No Symptoms Pulmonary: Reports: No Symptoms Cardiovascular: Reports: No Symptoms Gastrointestinal: Reports: No Symptoms Systems Review Comment:: pt resting comfortably in bed pain controlled, tolerable with activity ready for transfer to [facility], son will transport patient later contacted Sonali Morgan NP in [place] re: patient transfer - Patient Data Vitals - Most Recent: Last Vital Signs Temp 98.2 F 04/12/17 08:00 Pulse 75 04/12/17 08:00 Resp 16 04/12/17 08:00 BP 141/62 H 04/12/17 08:00 Pulse Ox 94 L 04/12/17 08:00 Weight - Most Recent: 86.183 kg I&O - Last 24 Hours: Intake & Output 04/11/17 04/12/17 04/12/17 22:59 06:59 14:59 Intake Total 1220 740 Output Total 1900 1100 Balance -680 -360 Lab Results Last 24 Hrs: Laboratory Results - last 24 hr 04/12/17 Range/Units 04:38 Hgb 11.5 L (12.0-16.0) g/dL Hct 34.0 L (36.0-46.0) % Med Orders - Current: Current Medications Acetaminophen (Tylenol Extra Strength) 1,000 mg PO Q6H [facility] Last Admin: 04/12/17 03:30 Dose: 1,000 mg Aspirin (Aspirin) 325 mg PO BID [facility] Last Admin: 04/12/17 08:21 Dose: 325 mg Celecoxib (Celebrex) 200 mg PO BID [facility] Last Admin: 04/12/17 08:22 Dose: 200 mg Citalopram Hydrobromide (Celexa) 40 mg PO DAILY [facility] Last Admin: 04/12/17 08:22 Dose: 40 mg Diphenhydramine HCl (Benadryl) 0 mg PO Q6H PRN PRN Reason: Itching Last Admin: 04/10/17 03:32 Dose: 25 mg Docusate Sodium (Colace) 100 mg PO BID [facility] Last Admin: 04/12/17 08:22 Dose: 100 mg Hydromorphone HCl (Dilaudid) 0 mg IVPUSH Q3H PRN PRN Reason: Pain Last Admin: 04/12/17 01:45 Dose: 1 mg Hydroxyzine HCl (Atarax) 25 mg PO Q8H PRN PRN Reason: Itching Last Admin: 04/12/17 02:25 Dose: 25 mg Ondansetron HCl (Zofran) 4 mg IVPUSH Q6H PRN PRN Reason: Nausea/Vomiting Last Admin: 04/10/17 15:56 Dose: 4 mg Oxycodone HCl (Oxycodone) 0 mg PO Q4H PRN PRN Reason: Pain Last Admin: 04/11/17 14:51 Dose: 5 mg Oxycodone HCl (Oxycontin) 10 mg PO Q12HR [facility] Last Admin: 04/12/17 08:21 Dose: 10 mg Pantoprazole Sodium (Protonix) 40 mg PO DAILY [facility] Last Admin: 04/12/17 08:22 Dose: 40 mg Preservision 1 each PO DAILY [facility] Last Admin: 04/12/17 08:22 Dose: Not Given Scopolamine (Transderm-Scop) 1.5 mg TRDERM ONARRIVE [facility] Sodium Chloride (Saline Flush) 10 ml FLUSH ASDIRECTED PRN PRN Reason: Keep Vein Open Sodium Chloride (Saline Flush) 2.5 ml FLUSH ASDIRECTED PRN PRN Reason: Keep Vein Open Topiramate (Topamax) 100 mg PO DAILY [facility] Last Admin: 04/11/17 09:25 Dose: 100 mg Discontinued Medications Diphenhydramine HCl (Benadryl) Confirm Administered Dose 50 mg .ROUTE .STK-MED ONE Stop: 04/09/17 12:15 Last Admin: 04/09/17 18:46 Dose: Not Given Diphenhydramine HCl (Benadryl) Confirm Administered Dose 50 mg .ROUTE .STK-MED ONE Stop: 04/09/17 14:07 Last Admin: 04/09/17 18:46 Dose: Not Given Ephedrine Sulfate (Ephedrine Sulfate) Confirm Administered Dose 50 mg .ROUTE .STK-MED ONE Stop: 04/09/17 09:23 Famotidine (Pepcid) 40 mg IVPUSH ONARRIVE [facility] Famotidine (Pepcid) 40 mg IVPUSH ONARRIVE [facility] Stop: 04/09/17 14:01 Fentanyl (Sublimaze) Confirm Administered Dose 100 mcg .ROUTE .STK-MED ONE Stop: 04/09/17 09:23 Fentanyl (Sublimaze) Confirm Administered Dose 100 mcg .ROUTE .STK-MED ONE Stop: 04/09/17 09:24 Fentanyl (Sublimaze) Confirm Administered Dose 100 mcg .ROUTE .STK-MED ONE Stop: 04/09/17 10:37 Fentanyl (Sublimaze) Confirm Administered Dose 100 mcg .ROUTE .STK-MED ONE Stop: 04/09/17 11:05 Fentanyl (Sublimaze) Confirm Administered Dose 100 mcg .ROUTE .STK-MED ONE Stop: 04/09/17 12:04 Last Admin: 04/09/17 18:45 Dose: Not Given Fentanyl (Sublimaze) Confirm Administered Dose 100 mcg .ROUTE .STK-MED ONE Stop: 04/09/17 12:13 Last Admin: 04/09/17 18:46 Dose: Not Given Hydromorphone HCl (Dilaudid) Confirm Administered Dose 2 mg .ROUTE .STK-MED ONE Stop: 04/09/17 10:18 Hydromorphone HCl (Dilaudid) Confirm Administered Dose 1 mg .ROUTE .STK-MED ONE Stop: 04/09/17 13:18 Last Admin: 04/09/17 18:46 Dose: Not Given Hydromorphone HCl (Dilaudid) Confirm Administered Dose 1 mg .ROUTE .STK-MED ONE Stop: 04/09/17 17:37 Last Admin: 04/09/17 18:48 Dose: Not Given Acetaminophen 1,000 mg/ Premix 100 mls @ 400 mls/hr IV ONARRIVE [facility] Cefazolin Sodium/Dextrose 2 gm (/ Premix) 50 mls @ 100 mls/hr IV ONCALL [facility] Lactated Ringer's (Ringers, Lactated) 1,000 mls @ 100 mls/hr IV ASDIRECTED [facility] Stop: 04/09/17 14:01 Tranexamic Acid 4,000 mg/ (Sodium Chloride) 140 mls @ 600 mls/hr IV ASDIRECTED [facility] Stop: 04/09/17 14:01 Ropivacaine 49.25 ml/Ketorolac Tromethamine 30 mg/Epinephrine HCl 0.5 mg/ Clonidine HCl 80 mcg/ Sodium Chloride 100 mls @ 2,975.207 mls/hr INJECT ASDIRECTED [facility] Stop: 04/09/17 14:01 Acetaminophen 1,000 mg/ Premix 100 mls @ 400 mls/hr IV ONARRIVE [facility] Stop: 04/09/17 14:01 Cefazolin Sodium/Dextrose 2 gm (/ Premix) 50 mls @ 100 mls/hr IV ONCALL [facility] Stop: 04/09/17 14:01 Tranexamic Acid 4,000 mg/ (Sodium Chloride) 140 mls @ 600 mls/hr IV ASDIRECTED [facility] Stop: 04/09/17 14:01 Lactated Ringer's (Ringers, Lactated) 1,000 mls @ 100 mls/hr IV ASDIRECTED [facility] Last Admin: 04/10/17 02:41 Dose: 100 mls/hr Acetaminophen 1,000 mg/ Premix 100 mls @ 400 mls/hr IV Q6H PRN PRN Reason: Pain Cefazolin Sodium/Dextrose 2 gm (/ Premix) 50 mls @ 100 mls/hr IV Q8H [facility] Stop: 04/10/17 02:29 Last Admin: 04/10/17 02:39 Dose: 100 mls/hr Acetaminophen (Ofirmev) Confirm Administered Dose 100 mls @ as directed IV .STK- MED ONE Stop: 04/09/17 13:30 Last Admin: 04/09/17 18:46 Dose: Not Given Ketorolac Tromethamine (Toradol) 15 mg IVPUSH ONARRIVE [facility] Stop: 04/09/17 14:01 Ketorolac Tromethamine (Toradol) 30 mg IVPUSH Q6H [facility] Stop: 04/10/17 04:00 Last Admin: 04/10/17 02:37 Dose: 30 mg Ketorolac Tromethamine (Toradol) Confirm Administered Dose 30 mg .ROUTE .STK- MED ONE Stop: 04/09/17 14:07 Last Admin: 04/09/17 18:46 Dose: Not Given Lidocaine (Xylocaine-Mpf 2%) Confirm Administered Dose 10 ml .ROUTE .STK-MED ONE Stop: 04/09/17 09:23 Midazolam HCl (Versed 1 Mg/Ml) Confirm Administered Dose 2 mg .ROUTE .STK-MED ONE Stop: 04/09/17 09:24 Ondansetron HCl (Zofran) Confirm Administered Dose 4 mg .ROUTE .STK-MED ONE Stop: 04/09/17 10:44 Oxycodone HCl (Oxycontin) 10 mg PO ONARRIVE [facility] Stop: 04/09/17 14:01 Oxycodone HCl (Oxycodone) Confirm Administered Dose 10 mg .ROUTE .STK-MED ONE Stop: 04/09/17 15:22 Last Admin: 04/09/17 18:47 Dose: Not Given Propofol (Diprivan 20 Ml) Confirm Administered Dose 400 mg .ROUTE .STK-MED ONE Stop: 04/09/17 09:24 Scopolamine (Transderm-Scop) 1.5 mg TRDERM ONARRIVE [facility] Succinylcholine Chloride (Succinylcholine In Ns Pf) Confirm Administered Dose 200 mg .ROUTE .STK-MED ONE Stop: 04/09/17 10:17 Tranexamic Acid (Cyklokapron) Confirm Administered Dose 4,000 mg .ROUTE .STK- MED ONE Stop: 04/09/17 09:33 - Exam Wound/Incisions: Dressing Dry and Intact General: Alert, Oriented Cardiovascular: Regular Rate, Regular Rhythm Extremities: Other (LLE - at/ehl/gastroc 5/5, dp 2+, sensation intact distally) Physical Findings Comment:: vss, afeb hgb 11.5 - Problem List Review Problem List Initiated/Reviewed/Updated: Yes - My Orders Last 24 Hours: Active Orders 24 hr Category Date Time Status Ready for Discharge [RC] PER UNIT ROUTINE Care 04/12/17 08:00 Active Medication Orders Acetaminophen (Tylenol Extra Strength) 1,000 mg PO Q6H [facility] Last Admin: 04/12/17 03:30 Dose: 1,000 mg Admin: 04/11/17 21:38 Dose: 1,000 mg Admin: 04/11/17 14:52 Dose: 1,000 mg Admin: 04/11/17 09:25 Dose: 1,000 mg Admin: 04/11/17 03:55 Dose: 1,000 mg Admin: 04/10/17 21:42 Dose: 1,000 mg Admin: 04/10/17 15:55 Dose: 1,000 mg Admin: 04/10/17 09:24 Dose: 1,000 mg Admin: 04/10/17 02:47 Dose: 1,000 mg Admin: 04/09/17 21:02 Dose: 1,000 mg Admin: 04/09/17 18:48 Dose: Aspirin (Aspirin) 325 mg PO BID [facility] Last Admin: 04/12/17 08:21 Dose: 325 mg Admin: 04/11/17 20:27 Dose: 325 mg Admin: 04/11/17 09:25 Dose: 325 mg Admin: 04/10/17 20:35 Dose: 325 mg Admin: 04/10/17 09:23 Dose: 325 mg Celecoxib (Celebrex) 200 mg PO BID [facility] Last Admin: 04/12/17 08:22 Dose: 200 mg Admin: 04/11/17 20:28 Dose: 200 mg Admin: 04/11/17 08:27 Dose: 200 mg Admin: 04/10/17 20:36 Dose: 200 mg Admin: 04/10/17 09:24 Dose: 200 mg Citalopram Hydrobromide (Celexa) 40 mg PO DAILY [facility] Last Admin: 04/12/17 08:22 Dose: 40 mg Admin: 04/11/17 09:24 Dose: 40 mg Admin: 04/10/17 09:24 Dose: 40 mg Diphenhydramine HCl (Benadryl) 0 mg PO Q6H PRN PRN Reason: Itching Last Admin: 04/10/17 03:32 Dose: 25 mg Admin: 04/10/17 01:04 Dose: 25 mg Admin: 04/09/17 19:23 Dose: 50 mg Docusate Sodium (Colace) 100 mg PO BID [facility] Last Admin: 04/12/17 08:22 Dose: 100 mg Admin: 04/11/17 20:27 Dose: 100 mg Admin: 04/11/17 09:24 Dose: 100 mg Admin: 04/10/17 20:35 Dose: 100 mg Admin: 04/10/17 09:24 Dose: 100 mg Admin: 04/09/17 21:04 Dose: 100 mg Hydromorphone HCl (Dilaudid) 0 mg IVPUSH Q3H PRN PRN Reason: Pain Last Admin: 04/12/17 01:45 Dose: 1 mg Admin: 04/11/17 17:19 Dose: 1 mg Admin: 04/10/17 13:00 Dose: 1 mg Admin: 04/09/17 23:14 Dose: 1 mg Hydroxyzine HCl (Atarax) 25 mg PO Q8H PRN PRN Reason: Itching Last Admin: 04/12/17 02:25 Dose: 25 mg Admin: 04/11/17 04:32 Dose: 25 mg Admin: 04/10/17 15:56 Dose: 25 mg Admin: 04/10/17 04:30 Dose: 25 mg Ondansetron HCl (Zofran) 4 mg IVPUSH Q6H PRN PRN Reason: Nausea/Vomiting Last Admin: 04/10/17 15:56 Dose: 4 mg Oxycodone HCl (Oxycodone) 0 mg PO Q4H PRN PRN Reason: Pain Last Admin: 04/11/17 14:51 Dose: 5 mg Admin: 04/11/17 09:29 Dose: 10 mg Admin: 04/11/17 02:08 Dose: 5 mg Admin: 04/10/17 21:42 Dose: 10 mg Admin: 04/10/17 15:56 Dose: 5 mg Admin: 04/10/17 14:24 Dose: 5 mg Admin: 04/10/17 09:40 Dose: 10 mg Admin: 04/10/17 01:08 Dose: 5 mg Oxycodone HCl (Oxycontin) 10 mg PO Q12HR [facility] Last Admin: 04/12/17 08:21 Dose: 10 mg Admin: 04/11/17 20:28 Dose: 10 mg Admin: 04/11/17 08:27 Dose: 10 mg Admin: 04/10/17 20:36 Dose: 10 mg Admin: 04/10/17 09:24 Dose: 10 mg Admin: 04/09/17 21:03 Dose: 10 mg Admin: 04/09/17 18:45 Dose: Pantoprazole Sodium (Protonix) 40 mg PO DAILY [facility] Last Admin: 04/12/17 08:22 Dose: 40 mg Admin: 04/11/17 09:25 Dose: 40 mg Admin: 04/10/17 09:25 Dose: 40 mg Preservision 1 each PO DAILY [facility] Last Admin: 04/12/17 08:22 Dose: Admin: 04/11/17 09:25 Dose: Admin: 04/10/17 09:14 Dose: Scopolamine (Transderm-Scop) 1.5 mg TRDERM ONARRIVE [facility] Sodium Chloride (Saline Flush) 10 ml FLUSH ASDIRECTED PRN PRN Reason: Keep Vein Open Sodium Chloride (Saline Flush) 2.5 ml FLUSH ASDIRECTED PRN PRN Reason: Keep Vein Open Topiramate (Topamax) 100 mg PO DAILY [facility] Last Admin: 04/11/17 09:25 Dose: 100 mg Admin: 04/10/17 09:24 Dose: 100 mg - Assessment Assessment (Free Text/Narrative):: POD#3 L TKA acute posthemorrhagic anemia - Plan Plan (Free Text/Narrative):: continue PT, pain management until d/ch with son d/ch meds and transfer meds on chart transfer summary has been signed by Dr. Walker d/ch summary #[id number]
[2017-04-12] MEDS: Topiramate 100 MG Tab PO SCH (09:25)
[2017-04-12] MEDS: oxyCODONE 5 MG Tab PO PRN (09:52)
--- NOTE | 2017-04-17 09:25 | DISCH ---
DATE OF DISCHARGE: 04/12/2017 PRIMARY CARE PHYSICIAN: Kaity Morgan ADMITTING DIAGNOSIS: Degenerative joint disease, left knee, tricompartmental. OTHER MEDICAL DIAGNOSES: 1. Gastroesophageal reflux disease. 2. Anxiety. 3. Migraines. DISCHARGE DIAGNOSES: 1. Degenerative joint disease, left knee, tricompartmental. 2. Gastroesophageal reflux disease. 3. Anxiety. 4. Migraines. 5. Acute post hemorrhagic anemia. BRIEF HISTORY: Luzmaria is a 71-year-old female who has had progressive complaints of left knee pain. She has tried and failed conservative treatment. She has previously undergone a right total knee arthroplasty and is doing well with that. At that time, surgical treatment was recommended. On April 09, 2017, the patient underwent a left total knee arthroplasty done by Dr. Latasha Walker. This was under spinal anesthesia with sedation. Estimated blood loss was 50 mL. Tourniquet time was 35 minutes. There were no known complications. Upon completion of the procedure, the patient was transferred to the PACU and subsequently to Med/Surg for postoperative care. HOSPITAL COURSE: Postoperatively, the patient did well. Her pain was controlled with a combination of oral and IV pain medications. Physical therapy followed her through her hospital stay. Aspirin 325mg by mouth twice daily was started on post-operative day #1 as DVT prophylaxis. She has been ambulating well with a wheeled walker. She has been tolerating her oral intake. Her vital signs have been stable. She has been afebrile. Her hemoglobin on the morning of April 12 was 11.5. She feels comfortable with transfer to [facility] today. DISCHARGE MEDICATIONS: 1. OxyContin 10 mg. 2. Oxycodone 5 mg. 3. Tylenol extra strength 500 mg. 4. Celebrex 200 mg. 5. Colace 100 mg. 6. Aspirin 325 mg. DISCHARGE INSTRUCTIONS: 1. Follow up in clinic 10-14 days from the date of procedure. This appointment has been made for the patient. 2. Physical therapy daily while in swing bed for stretching, strengthening, gait training, mobilization, manipulation, stabilization, and home exercises. 3. She is to change her dressing on April 15. Place a new Aquacel dressing and leave that in place until followup. 4. Okay to shower over the Aquacel dressing. 5. NAOMY hose, on in the morning, off in the evening. 6. Polar Care to the left knee as needed. 7. No driving while taking narcotic pain medication. For complete medication reconciliation and discharge instructions, please refer back to the patient's EHR. Should she have questions or concerns prior to followup, she has been advised to return to clinic or call. DEAN MA /[id number] VIVIANE
== END 2017-04-12 10:00 | disposition home or self-care (01) | DRG 470 ==
LOC: MW.MS 13:24
PROVIDERS: ADMIT Orthopaedic Surgery; ATTEND Orthopaedic Surgery
PROC: 0SRD0J9 Replacement of Left Knee Joint with Synthetic Substitute, Cemented, Open Approach (ICD-10-PCS; principal; 2017-04-09)
DX: M17.12 Unilateral primary osteoarthritis, left knee (principal); D62 Acute posthemorrhagic anemia; M94.262 Chondromalacia, left knee; M25.762 Osteophyte, left knee; Z88.8 Allergy status to other drugs, medicaments and biological substances; Z79.899 Other long term (current) drug therapy
CPT/HCPCS: 01402; 36415; 73560-26-LT; 73560-LT; 85014; 85018; 86850; 86900; 86901; 88305; 88311; 97110-GP; 97162-GP; A9270-GY; C1713; C1776; J0171; J0690; J0735; J1170; J1885; J2250; J2405; J2704; J2795; J3010; J7050; J7120